=== PATIENT | female | born 1985 | race Caucasian/White ===

== ENCOUNTER → 2017-01-13 | Outpatient (CLI) | payer OTHER ==
[~2017-01-13] MED LIST: LEVO25TA5 PO; MULT-506 PO; OMEGCAP2 PO
== END | disposition home or self-care (01) ==
LOC: C.LABBC 11:37
PROVIDERS: ATTEND Family Medicine
DX: E03.9 Hypothyroidism, unspecified (principal)

== ENCOUNTER → 2017-04-23 | Outpatient (CLI) | payer OTHER ==
[2017-04-23 11:03] LABS: BASO % 0.5 %; BASO ABS # 0.04 K/uL (0-0.2); COMPLETE YES; EOS % 6.8 %; HEMATOCRIT 39.6 % (37-47); IG% 0.3 %; LYMPH % 39.9 %; MEAN CORPUSCULAR HEMOGLOBIN 31.3 pg (25-34); MEAN CORPUSCULAR HGB CONC 34.3 g/dl (32-36); MONO % 7.3 %; NEUT % 45.2 %; PLATELET COUNT 338 K/uL (130-400); RED BLOOD COUNT 4.35 M/uL (4.2-5.4); WHITE BLOOD COUNT 8.78 K/uL (4.8-10.8)
[2017-04-23 11:17] LABS: ALT/SGPT 61 U/L (12-78); BLOOD UREA NITROGEN 9 mg/dl (7-18); BUN/CREATININE RATIO 13.4 (10-20); CALCIUM 8.7 mg/dl (8.5-10.1); CARBON DIOXIDE 25 mmol/L (21-32); CHLORIDE 107 mmol/L (98-107); CHOLESTEROL 235 mg/dl (0-200); GLUCOSE 147 mg/dl (70-99); POTASSIUM 3.8 mmol/L (3.5-5.1); SODIUM 140 mmol/L (136-145); TRIGLYCERIDES 368 mg/dl (0-150); VERY LOW DENSITY LIPOPROT CALC 74 mg/dl
[2017-04-23 11:20] LABS: ALB/GLOB RATIO 0.8 (0.9-2); ALKALINE PHOSPHATASE 91 U/L (45-117); AST/SGOT 40 U/L (15-37); CHOLESTEROL/HDL RATIO 12.4; HDL CHOLESTEROL 19 mg/dl; LDL CHOLESTEROL CALCULATED 142 mg/dl
[2017-04-23 11:26] LABS: ESTIMATED AVERAGE GLUCOSE 151 mg/dl; HA1C FLAG Normal (Normal)
== END | disposition home or self-care (01) ==
LOC: C.LABBC 09:06
PROVIDERS: ATTEND Physician Assistant
DX: E78.5 Hyperlipidemia, unspecified (principal); D72.829 Elevated white blood cell count, unspecified; R73.9 Hyperglycemia, unspecified

== ENCOUNTER → 2017-06-01 | Outpatient (CLI) | payer OTHER ==
[2017-06-08 11:27] LABS: HPV 16 RNA NOT DETECTED (NOT DETECTED); HPV 18 45 RNA NOT DETECTED (NOT DETECTED)
== END | disposition home or self-care (01) ==
LOC: C.PAPS 12:18
PROVIDERS: ATTEND Physician Assistant
DX: Z01.419 Encounter for gynecological examination (general) (routine) without abnormal findings (principal)

== ENCOUNTER → 2017-06-01 | Outpatient (CLI) | payer OTHER ==
[2017-06-01 12:42] LABS: PREG INTERNAL NEGATIVE QC NEG CLEAR BACKGROUND; PREG INTERNAL POSITIVE QC POS CONTROL LINE
[2017-06-01 12:57] LABS: PROLACTIN 5.3 ng/mL
== END | disposition home or self-care (01) ==
LOC: C.LAB1850 09:59
PROVIDERS: ATTEND Physician Assistant
DX: N91.1 Secondary amenorrhea (principal)

== ENCOUNTER → 2017-07-01 | Outpatient (CLI) | payer OTHER ==
--- NOTE | 2017-07-01 13:15 | DIAGNOSTIC IMAGING REPORT ---
ULTRASOUND BILATERAL LOWER EXTREMITY VENOUS CLINICAL HISTORY: Leg pain/cramping. COMPARISON STUDY: Left lower extremity venous ultrasound dated 03/22/2016. TECHNIQUE: Real-time, grayscale, and color Doppler sonography of the deep veins of the right and left lower extremity was performed from the inguinal crease to the calf. Compression and augmentation were utilized. FINDINGS: There is no sonographic evidence of deep venous thrombosis identified in the right or left lower extremity. The common femoral, superficial femoral, and popliteal veins are patent and normally compressible bilaterally. The greater saphenous vein and the profunda femoris vein at the junction with the common femoral vein are clear in both legs. The visualized calf veins are patent bilaterally. IMPRESSION: There is no sonographic evidence of deep venous thrombosis identified in the right or left lower extremity. Electronically signed by: Jose Samaniego M.D. 07/01/2017 1:14 PM Dictated Date/Time: 07/01/2017 1:12 PM
== END | disposition home or self-care (01) ==
LOC: C.ULTR 12:38
PROVIDERS: ATTEND Physician Assistant
DX: R25.2 Cramp and spasm (principal)

== ENCOUNTER → 2017-10-27 | Outpatient (CLI) | payer OTHER ==
[2017-10-27 14:22] LABS: BASO % 0.5 %; BASO ABS # 0.05 K/uL (0-0.2); EOS % 6.8 %; HEMATOCRIT 40.6 % (37-47); HEMOGLOBIN 13.6 g/dL (12.0-16.0); IG# 0.06 K/uL (0.00-0.02); LYMPH % 39.1 %; MEAN CELL VOLUME 91.4 fL (80-100); MEAN CORPUSCULAR HEMOGLOBIN 30.6 pg (25-34); MEAN CORPUSCULAR HGB CONC 33.5 g/dl (32-36); MEAN PLATELET VOLUME 9.5 fL (7.4-10.4); MONO % 6.4 %; MONO ABS # 0.66 K/uL (0.11-0.59); NEUT % 46.6 %; NEUT ABS # 4.77 K/uL (1.4-6.5); PLATELET COUNT 422 K/uL (130-400); RED CELL DISTRIBUTION WIDTH CV 13.8 % (11.5-14.5); RED CELL DISTRIBUTION WIDTH SD 46.5 fL (36.4-46.3); WHITE BLOOD COUNT 10.24 K/uL (4.8-10.8)
[2017-10-27 14:27] LABS: HEMOGLOBIN A1C 6.6 % (4.5-5.6)
[2017-10-27 14:51] LABS: ALBUMIN 3.3 gm/dl (3.4-5.0); ALT/SGPT 71 U/L (12-78); BLOOD UREA NITROGEN 15 mg/dl (7-18); CALCIUM 8.7 mg/dl (8.5-10.1); CARBON DIOXIDE 25 mmol/L (21-32); CHOLESTEROL 249 mg/dl (0-200); GLUCOSE 151 mg/dl (70-99); SODIUM 136 mmol/L (136-145)
[2017-10-27 15:02] LABS: ALKALINE PHOSPHATASE 64 U/L (45-117); AST/SGOT 53 U/L (15-37); TOTAL PROTEIN 7.8 gm/dl (6.4-8.2)
== END | disposition home or self-care (01) ==
LOC: C.LABBC 11:04
PROVIDERS: ATTEND Neuromusculoskeletal Medicine & OMM
DX: E03.9 Hypothyroidism, unspecified (principal); I10 Essential (primary) hypertension; E66.01 Morbid (severe) obesity due to excess calories; E66.9 Obesity, unspecified; E11.9 Type 2 diabetes mellitus without complications

== ENCOUNTER → 2017-10-28 | Outpatient (CLI) | payer OTHER | END | disposition home or self-care (01) | LOC: C.LABBC 10:20 | PROVIDERS: ATTEND Neuromusculoskeletal Medicine & OMM | DX: N91.2 Amenorrhea, unspecified (principal); N92.6 Irregular menstruation, unspecified ==

== ENCOUNTER 2024-01-04 14:09 | Inpatient (IN) ==
[2024-01-04] MEDS: ONDANSETRON INJ 2 MG/ML 2 ML VIAL IV STA (14:33)
[2024-01-04 14:53] LABS: Basophils # (auto) 0.05 K/uL (0.00-0.20); Basophils % (auto) 0.3 %; Eosinophils # (auto) 1.36 K/uL (0.00-0.50); Eosinophils % (auto) 8.9 %; Hematocrit (blood only) 39.6 % (37.0-47.0); Hemoglobin 13.3 g/dl (12.0-16.0); Immature Granulocytes # (auto) 0.05 K/uL (0.01-0.20); Immature Granulocytes % (auto) 0.3 %; Lymphocytes # (auto) 4.84 K/uL (1.20-3.40); Lymphocytes % (auto) 31.7 %; Mean Corpuscular Hemoglobin 29.5 pg (25.0-34.0); Mean Corpuscular Hgb Conc 33.6 g/dL (32.0-36.0); Mean Corpuscular Volume 87.8 fL (80.0-100.0); Mean Platelet Volume 8.7 fL (9.4-12.4); Monocytes # (auto) 0.82 K/uL (0.11-0.59); Monocytes % (auto) 5.4 %; Neutrophils # (auto) 8.13 K/uL (1.40-6.50); Neutrophils % (auto) 53.4 %; Platelet Count 458 K/uL (130-400); RDW Coefficient of Variation 12.6 % (11.5-14.5); Red Blood Count 4.51 M/uL (4.20-5.40); White Blood Count 15.25 K/ul (4.8-10.8)
[2024-01-04 15:10] LABS: Pregnancy Test, Serum Negative (Negative)
[2024-01-04 15:28] LABS: Albumin Globulin Ratio 1.3 (0.9-2); Albumin Level 4.3 gm/dl (3.4-5.0); BUN Creatinine Ratio 17.7 (10-20); Bilirubin,Total 0.9 mg/dl (0.2-1.0); Creatinine Clr Calc Pharmacy 125.8 ml/min; Est GFR (African American) 109.3 ml/min; Est GFR (Non-African American) 94.3 ml/min; Globulin 3.4 gm/dl (2.5-4.0); Potassium 3.8 mmol/L (3.5-5.1); Total Protein 7.7 gm/dl (6.0-8.3)
[2024-01-04] MEDS: OPTIRAY 320 100ml IV ONE (16:31)
--- NOTE | 2024-01-04 16:57 | CT Scan Report ---
ABDOMEN AND PELVIS CT WITH IV CONTRAST CT DOSE: 1564.79 mGy.cm HISTORY: Acute generalized abdominal pain abd pain TECHNIQUE: Multiaxial CT images of the abdomen and pelvis were performed following the IV administrat ion of 92 cc of Optiray, A dose lowering technique was utilized adhering to the principles of ALARA. COMPARISON STUDY: None. FINDINGS: Partially imaged coronary arterial calcifications. No acute lower thoracic abnormality. No free air. Unremarkable spleen, pancreas and adrenal glands. There is mild nonspecific gallbladder wal l thickening. Trace pericholecystic edema. The liver is within normal limits. Patency of the hepatic and portal veins. Unremarkable kidneys. No hydronephrosis. Decompressed urinary bladder with wall thickening. Unremarka ble uterus and adnexa. Mild atherosclerosis of the aorta without aneurysm. Nonspecific borderline enl arged aortocaval lymph nodes measure up to 11 mm in short axis. No bowel junction. The majority of th e large bowel is decompressed. Scattered large and small bowel air-fluid levels. The visualized appen angela appears noninflamed. No acute fracture identified. Osseous structures right is of the bilateral h ips with subcortical cystic changes and subchondral sclerosis. Accessory ossicle of the left acetabul um. Moderate to severe L4-L5 intervertebral disc space narrowing. IMPRESSION: 1. Mild nonspecific gallbladder wall thickening with trace pericholecystic edema. Correlation with ri ght upper quadrant ultrasound recommended. 2. No bowel obstruction or pneumoperitoneum. 3. Normal appendix. 4. Coronary arterial calcifications. ACT 112: Negative or not required by law. The above report was generated using voice recognition software. It may contain grammatical, syntax o r spelling errors. Electronically signed by: Chris Oconnell M.D. 01/04/2024 4:56 PM
--- NOTE | 2024-01-04 17:39 | Emergency Department Note ---
ED Provider Note History of Present Illness Chief Complaint: Diarrhea Stated Complaint: NAUSEA, UPSET STOMACH, SULFUR TASTE IN MOUTH, DIAR Time Seen by Provider: 01/04/24 16:35 Source: patient Mode of arrival: ambulatory Limitations: no limitations This patient is a 38-year-old female who presents to the emergency department for evaluation of nausea, diarrhea and abdominal pain. She states that her symptoms started 2 days ago. At that time she was having some nausea. She is on Mounjaro and took her most recent dose the day before, so she initially thought it was side effects due to this. Yesterday she had some worsening nausea as well as some diarrhea. Today symptoms have continued worsening and she has had no appetite. She tried eating some chicken strips and then felt very sick again, with increased nausea and upper abdominal pain. Patient does report a history of gallstones when she was in high school. Otherwise denies a history of similar symptoms. She denies any blood in her stools. She has not vomited. She denies any fevers. Home Medications Medication Instructions Recorded Confirmed Type blood sugar diagnostic (ReliOn 11/19/22 01/04/24 History Prime Test Strips) cholecalciferol (vitamin D3) 50 50 mcg PO DAILY 11/19/22 01/04/24 History mcg (2,000 unit) capsule pen needle, diabetic 32 gauge x #100 ea 12/16/22 01/04/24 Rx 5/32" (BD Ultra-Fine Chichi Pen Needle) omega-3 fatty acids 1,000 mg 2,000 mg PO BID 01/07/23 01/04/24 History capsule (Fish Oil Concentrate) levothyroxine 125 mcg tablet 125 mcg PO DAILY #90 tabs 02/08/23 01/04/24 Rx labetalol 100 mg tablet 100 mg PO DAILY #90 tabs 05/11/23 01/04/24 Rx niacin 1,000 mg tablet,extended 1,000 mg PO .qhs #90 tabs 05/31/23 01/04/24 Rx release 24 hr blood-glucose sensor (FreeStyle #2 ea 10/25/23 01/04/24 Rx Adwoa 3 Sensor device) insulin glargine 100 unit/mL (3 55 unit subcut QAM 11/17/23 01/04/24 History mL) subcutaneous pen (Lantus Solostar U-100 Insulin) rosuvastatin 20 mg tablet 20 mg PO DAILY #90 tabs 11/17/23 01/04/24 Rx tirzepatide 12.5 mg/0.5 mL 12.5 mg (0.5 mL) subcut Q7D #2 mL 11/17/23 01/04/24 Rx subcutaneous pen injector metformin 1,000 mg tablet 1,000 mg PO BID #60 tabs 12/22/23 01/04/24 Rx Allergies Allergy/AdvReac Type Severity Reaction Status Date / Time No Known Allergies Allergy Unverified 01/04/24 21:12 Past Med/Surg History Medical History Cervical high risk HPV (human papillomavirus) test positive Menstrual periods irregular Secondary amenorrhea Vitamin D deficiency Obesity, morbid Hx of migraines Surgical History No pertinent past surgical history Family History Father Colorectal cancer Myocardial infarction Coronary heart disease Diabetes Dyslipidemia Mother Ovarian cancer Diabetes Dyslipidemia Hypothyroidism Alzheimer disease Brother Hypertension Sister Hypertension Grandmother (Maternal) Hyperthyroidism Denies family history of Prostate cancer Breast cancer Social History Smoking Status: Never smoker Second Hand Exposure: No; Do You Dip or Chew Tobacco: No; Hx Alcohol Use: No Hx Substance Use: No Preferred Language: Albanian Communication Ability: Effective Visual Impairment: No Limitations Hearing Ability: Normal Ovens Supervisor Required: No Beliefs That Will Affect Care: None marital status: Current Living Situation: Spouse current occupational status: employed Feels Safe at Home: Yes Safety Concerns: Feels Safe At This Time Childhood Exposure to Second-Hand Smoke: Yes Diet: regular Dental Care, Regularly: Yes Physical Activity Frequency: 3-4 Times per Week Seatbelt Use: always Sunscreen Use: Yes Assistive Devices: Glasses Physical Exam Vital Signs Vital Signs - 24 hr 01/04/24 14:15 01/04/24 16:57 01/04/24 16:58 Temperature 36.7 C Temperature Source Temporal Artery Scan Pulse Rate 121 H 94 H 92 H Pulse Rate from SpO2 Sensor 94 H Respiratory Rate 16 23 Respiratory Effort / Characteristics Non-Labored Spontaneous Respiratory Depth Normal Respiratory Pattern Regular Blood Pressure 178/132 H 122/76 Blood Pressure Mean 147 91 Blood Pressure Position Sitting Pulse Oximetry 97 97 Oxygen Delivery Method Room Air Sepsis Recent Fever Within 48 Hours No Sepsis New/Unexplained Change in Mental Status N/A Sepsis Action Taken by Nursing No Action Required 01/04/24 18:00 01/04/24 19:00 Temperature Temperature Source Pulse Rate 87 86 Pulse Rate from SpO2 Sensor 87 86 Respiratory Rate 19 18 Respiratory Effort / Characteristics Respiratory Depth Respiratory Pattern Blood Pressure 120/78 133/75 Blood Pressure Mean 92 94 Blood Pressure Position Pulse Oximetry 97 99 Oxygen Delivery Method Room Air Room Air Sepsis Recent Fever Within 48 Hours Sepsis New/Unexplained Change in Mental Status Sepsis Action Taken by Nursing VITALS: Vitals are noted on the nurse's note and reviewed by myself. GENERAL: This is a 38-year-old female, in no acute distress, well-developed well-nourished. SKIN: The skin was without rashes. NECK: Supple without nuchal rigidity. HEART: Regular rate and rhythm without murmurs gallops or rubs. LUNGS: Clear to auscultation bilaterally without wheezes, rales or rhonchi. ABDOMEN: Positive bowel sounds x 4. Soft, moderate epigastric tenderness to palpation. No guarding or rebound tenderness. NEURO: Patient was alert and oriented to person place and time. Course Administered Medications Acetaminophen (Acetaminophen 325 Mg Tab) 650 mg PO Q4H PRN PRN Reason: pain/fever Stop: 02/03/24 23:25 Last Admin: 01/04/24 23:50 Dose: 650 mg Documented By: JANELLE Potassium Chloride/Sodium Chloride (Normal Saline W/20 Meq Kcl) 20 meq in 1,000 mls @ 100 mls/hr IV .Q10H [facility]; Protocol Stop: 01/05/24 17:59 Last Admin: 01/04/24 23:51 Dose: 100 mls/hr Documented By: JANELLE Discontinued Medications Sodium Chloride (Nss) 1,000 mls @ 999 mls/hr IV .Q1H1M ONE Stop: 01/04/24 18:41 Last Infusion: 01/04/24 21:17 Dose: Infused Documented By: Admin: 01/04/24 18:03 Dose: 999 mls/hr Documented By: JOVANNA Ceftriaxone Sodium (Rocephin) 2,000 mg in 50 mls @ 100 mls/hr IV NOW STA Stop: 01/04/24 22:24 Last Infusion: 01/04/24 23:10 Dose: Infused Documented By: Admin: 01/04/24 22:40 Dose: 100 mls/hr Documented By: NIYA Pantoprazole Sodium 40 mg/ (Syringe) 10 mls @ 5 mls/min IV NOW ONE Stop: 01/04/24 22:16 Last Admin: 01/04/24 22:38 Dose: 5 mls/min Documented By: NIYA Ioversol (Optiray 320 100ml) 92 ml IV ONCE ONE Stop: 01/04/24 16:32 Last Admin: 01/04/24 16:31 Dose: 92 ml Documented By: ANA MARIA Morphine Sulfate (Morphine Sulfate 10 Mg/Ml Carp/Vial) 6 mg IV NOW STA Stop: 01/04/24 17:42 Last Admin: 01/04/24 18:04 Dose: 6 mg Documented By: JOVANNA Ondansetron HCl (Ondansetron Inj 2 Mg/Ml 2 Ml Vial) 4 mg IV NOW STA Stop: 01/04/24 14:24 Last Admin: 01/04/24 14:33 Dose: 4 mg Documented By: ONEIL Medical Decision Making Differential Diagnosis Appendicitis, ovarian cyst, ovarian torsion, ectopic , TOA, PID, infections, diverticulitis, UTI, obstruction, mesenteric ischemia, aortic pathology, inflammatory bowel disease, renal colic, PUD, pancreatitis, biliary pathology, hernia, volvulus, constipation, as well as other pathologies. Home Medications was personally reviewed by me Laboratory Data Attestation: I reviewed the patient's lab results. 01/04/24 14:32 01/04/24 14:32 Lab Results 01/04/24 Range/Units 14:32 WBC 15.25 H (4.8-10.8) K/ul RBC 4.51 (4.20-5.40) M/uL Hgb 13.3 (12.0-16.0) g/dl Hct 39.6 (37.0-47.0) % MCV 87.8 (80.0-100.0) fL MCH 29.5 (25.0-34.0) pg MCHC 33.6 (32.0-36.0) g/dL RDW Std Deviation 40.0 (36.4-46.3) fL RDW Coeff of Papa 12.6 (11.5-14.5) % Plt Count 458 H (130-400) K/uL MPV 8.7 L (9.4-12.4) fL Immature Gran % (Auto) 0.3 % Neut % (Auto) 53.4 % Lymph % (Auto) 31.7 % Dukes % (Auto) 5.4 % Eos % (Auto) 8.9 % Baso % (Auto) 0.3 % Neut # (Auto) 8.13 H (1.40-6.50) K/uL Lymph # (Auto) 4.84 H (1.20-3.40) K/uL Dukes # (Auto) 0.82 H (0.11-0.59) K/uL Eos # (Auto) 1.36 H (0.00-0.50) K/uL Baso # (Auto) 0.05 (0.00-0.20) K/uL Immature Gran # (Auto) 0.05 (0.01-0.20) K/uL Sodium 139 (136-145) mmol/L Potassium 3.8 (3.5-5.1) mmol/L Chloride 107 (98-107) mmol/L Carbon Dioxide 24 (21-32) mmol/L Anion Gap 8 (3-11) BUN 14 (6-23) mg/dl Creatinine 0.79 (0.6-1.2) mg/dl Est Cr Clr Drug Dosing 125.8 ml/min Est GFR ( Amer) 109.3 ml/min Est GFR (Non-Af Amer) 94.3 ml/min BUN/Creatinine Ratio 17.7 (10-20) Glucose 207 H (70-99(Fasting)) mg/dl Calcium 9.0 (8.6-10.3) mg/dl Total Bilirubin 0.9 (0.2-1.0) mg/dl AST 17 (13-39) U/L ALT 19 (7-52) U/L Alkaline Phosphatase 66 (34-104) U/L Total Protein 7.7 (6.0-8.3) gm/dl Albumin 4.3 (3.4-5.0) gm/dl Globulin 3.4 (2.5-4.0) gm/dl Albumin/Globulin Ratio 1.3 (0.9-2) Lipase 296 H (11-82) U/L HCG, Qual Negative (Negative) Imaging Data Attestation: I personally reviewed and interpreted this imaging study as follows: Radiologist's Impression: Abdomen/Pelvis CT 01/04/24 16:[address] WITH IV CONTRAST CT DOSE: 1564.79 mGy.cm HISTORY: Acute generalized abdominal pain abd pain TECHNIQUE: Multiaxial CT images of the abdomen and pelvis were performed following the IV administration of 92 cc of Optiray, A dose lowering technique was utilized adhering to the principles of ALARA. COMPARISON STUDY: None. FINDINGS: Partially imaged coronary arterial calcifications. No acute lower thoracic abnormality. No free air. Unremarkable spleen, pancreas and adrenal glands. There is mild nonspecific gallbladder wall thickening. Trace pericholecystic edema. The liver is within normal limits. Patency of the hepatic and portal veins. Unremarkable kidneys. No hydronephrosis. Decompressed urinary bladder with wall thickening. Unremarkable uterus and adnexa. Mild atherosclerosis of the aorta without aneurysm. Nonspecific borderline enlarged aortocaval lymph nodes measure up to 11 mm in short axis. No bowel junction. The majority of the large bowel is decompressed. Scattered large and small bowel air-fluid levels. The visualized appendix appears noninflamed. No acute fracture identified. Osseous structures right is of the bilateral hips with subcortical cystic changes and subchondral sclerosis. Accessory ossicle of the left acetabulum. Moderate to severe L4-L5 intervertebral disc space narrowing. IMPRESSION: 1. Mild nonspecific gallbladder wall thickening with trace pericholecystic edema. Correlation with right upper quadrant ultrasound recommended. 2. No bowel obstruction or pneumoperitoneum. 3. Normal appendix. 4. Coronary arterial calcifications. ACT 112: Negative or not required by law. The above report was generated using voice recognition software. It may contain grammatical, syntax or spelling errors. Electronically signed by: Chris Oconnell M.D. 01/04/2024 4:56 PM Gallbladder Ultrasound 01/04/24 17:25 Exam(s): US GALLBLADDER EXAM: US Abdomen Limited, Gallbladder CLINICAL HISTORY: Reason for exam: upper abd pain, elevated lipase, abnormal gb on ct. TECHNIQUE: Real-time ultrasound of the right upper quadrant with image documentation. COMPARISON: CT abdomen and pelvis of the same date FINDINGS: Liver: Liver measures 18 cm, enlarged. Increased echogenicity. No focal lesion. Patent, normally directed portal vein. Gallbladder: Cholelithiasis. Borderline gallbladder wall thickness measuring 3 mm. Alvarado sign indeterminate due to analgesia. Common bile duct: No biliary dilatation. Common bile duct 3 mm. Pancreas: Pancreas appears unremarkable as visualized. Right kidney: Right kidney measures 12.3 cm. No hydronephrosis. IMPRESSION: 1. Cholelithiasis and borderline gallbladder wall thickening. Imaging appearance is not especially suggestive of cholecystitis, but clinical correlation required. 2. Hepatomegaly and steatosis. Electronically signed by: Murtaza Serrano M.D. 01/04/24 20:07 PM MDM Narrative This patient is a 38-year-old female who presents to the Emergency Department for evaluation of nausea, diarrhea and abdominal pain. Labs revealed a leukocytosis of 15,000. Her lipase is elevated at 296, LFTs are within normal limits. CT of the abdomen/pelvis was performed and does show a normal pancreas, however there is some gallbladder wall thickening and pericholecystic edema. Right upper quadrant ultrasound was recommended. This was performed and does show cholelithiasis and borderline wall thickening. Common bile duct is 3 mm, no biliary dilatation. Case was discussed with Dr. Sumner from general surgery. After discussion of findings, he recommended admission to medicine for further workup and care. He states that general surgery will consult. Patient informed of all findings. She did receive IV fluids, Zofran and morphine in the ER for symptoms. She verbalized understanding. Case was then discussed with the [facility] who agreed to evaluate the patient for further care. Discharge Plan Visit Data Chief Complaint: Diarrhea Stated Complaint: NAUSEA, UPSET STOMACH, SULFUR TASTE IN MOUTH, DIAR ED Provider: Wayne Cedeño ED Midlevel Provider: Tatianna Ashby Patient Disposition: Admitted As Inpatient Discharge Instructions Interventions: ED Discharge Assessment Last Done: 01/04/24 22:54
[2024-01-04] MEDS: SODIUM CHLORIDE 0.9% 1,000 ML IV ONE (18:03)
[2024-01-04] MEDS: MoRPHine SULFATE 10 MG/ML CARP/VIAL IV STA (18:04)
--- NOTE | 2024-01-04 20:08 | Ultrasound Report ---
Exam(s): US GALLBLADDER EXAM: US Abdomen Limited, Gallbladder CLINICAL HISTORY: Reason for exam: upper abd pain, elevated lipase, abnormal gb on ct. TECHNIQUE: Real-time ultrasound of the right upper quadrant with image documentation. COMPARISON: CT abdomen and pelvis of the same date FINDINGS: Liver: Liver measures 18 cm, enlarged. Increased echogenicity. No focal lesion. Patent, normally directed portal vein. Gallbladder: Cholelithiasis. Borderline gallbladder wall thickness measuring 3 mm. Alvarado sign indeterminate due to analgesia. Common bile duct: No biliary dilatation. Common bile duct 3 mm. Pancreas: Pancreas appears unremarkable as visualized. Right kidney: Right kidney measures 12.3 cm. No hydronephrosis. IMPRESSION: 1. Cholelithiasis and borderline gallbladder wall thickening. Imaging appearance is not especially suggestive of cholecystitis, but clinical correlation required. 2. Hepatomegaly and steatosis. Electronically signed by: Murtaza Serrano M.D. 01/04/24 20:07 PM
--- NOTE | 2024-01-04 21:58 | History & Physical Report ---
Date of Service January 04, 2024 Assessment & Plan (1) Abnormal findings on diagnostic imaging of gallbladder: (2) Pancreatitis: (3) Dyslipidemia: (4) Hypothyroidism: (5) Hypertension: (6) Uncontrolled type 2 diabetes mellitus with hyperglycemia: (7) Obesity, morbid: Plan Abnormal gallbladder imaging with pancreatitis- Patient has had progressive symptoms over the past 2 days initially given his nausea with vomiting, and then progressed to abdominal epigastric discomfort today. She does note an interval at the end of July or early August when she had similar symptoms, and thought was just a food reaction. CT scan of abdomen pelvis notes gallbladder wall thickening and mild pericholecystic edema and no noted pancreatitis Gallbladder ultrasound shows cholelithiasis and gallbladder wall thickness, but no definite acute cholecystitis and no note of pancreatitis NPO Ceftriaxone 2 g IV daily Pantoprazole 40 mg IV daily Normal saline + KCl 20 mill equivalents at 100 mL/h x 2 L Order HIDA scan Order serial CBC with differential, chemistry profile and lipase levels Diabetes mellitus- Glucose 207 on admission Reduce glargine from 55 to 30 units subcu daily Placed on Accu-Cheks with NovoLog SSI Hold metformin and tirzepatide Of note, tirzepatide/Mounjaro is associated with gallbladder disease, diarrhea, nausea and vomiting, and acute pancreatitis Hypertension- Reportedly is on labetalol 100 mg daily, which will be held due to being relatively low blood pressure If blood pressure is elevated in the morning, may resume partial dosing at that time History of Present Illness Chief Complaint: The patient presents to the emergency department with complaint of intermittent nausea that began about 2 days ago, and then today developed abdominal discomfort in the epigastric area, and diarrhea Primary Care Provider: Freddie Cortez DO The patient is a 38-year-old female past medical history including dyslipidemia, hypothyroidism, hypertension, diabetes mellitus type 2 and morbid obesity with BMI 42. She presents to the emergency department with symptoms as noted above. CT scan of abdomen pelvis showed gallbladder wall thickening, with mild pericholecystic edema, with suggestion for ordered gallbladder ultrasound for confirmation. Gallbladder ultrasound revealed cholelithiasis with gallbladder wall thickening, but unsure of evidence of acute cholecystitis. LFTs are normal, and lipase is elevated 296. WBC is elevated 15.25 Allergies Allergy/AdvReac Type Severity Reaction Status Date / Time No Known Allergies Allergy Unverified 01/04/24 21:12 Home Medications Medication Instructions Recorded Confirmed Type blood sugar diagnostic (ReliOn 11/19/22 01/04/24 History Prime Test Strips) cholecalciferol (vitamin D3) 50 50 mcg PO DAILY 11/19/22 01/04/24 History mcg (2,000 unit) capsule pen needle, diabetic 32 gauge x #100 ea 12/16/22 01/04/24 Rx 5/32" (BD Ultra-Fine Chichi Pen Needle) omega-3 fatty acids 1,000 mg 2,000 mg PO BID 01/07/23 01/04/24 History capsule (Fish Oil Concentrate) levothyroxine 125 mcg tablet 125 mcg PO DAILY #90 tabs 02/08/23 01/04/24 Rx labetalol 100 mg tablet 100 mg PO DAILY #90 tabs 05/11/23 01/04/24 Rx niacin 1,000 mg tablet,extended 1,000 mg PO .qhs #90 tabs 05/31/23 01/04/24 Rx release 24 hr blood-glucose sensor (FreeStyle #2 ea 10/25/23 01/04/24 Rx Adwoa 3 Sensor device) insulin glargine 100 unit/mL (3 55 unit subcut QAM 11/17/23 01/04/24 History mL) subcutaneous pen (Lantus Solostar U-100 Insulin) rosuvastatin 20 mg tablet 20 mg PO DAILY #90 tabs 11/17/23 01/04/24 Rx tirzepatide 12.5 mg/0.5 mL 12.5 mg (0.5 mL) subcut Q7D #2 mL 11/17/23 01/04/24 Rx subcutaneous pen injector metformin 1,000 mg tablet 1,000 mg PO BID #60 tabs 12/22/23 01/04/24 Rx Past Med/Surg History Medical History Cervical high risk HPV (human papillomavirus) test positive Menstrual periods irregular Secondary amenorrhea Vitamin D deficiency Obesity, morbid Hx of migraines Surgical History No pertinent past surgical history Family History Father Colorectal cancer Myocardial infarction Coronary heart disease Diabetes Dyslipidemia Mother Ovarian cancer Diabetes Dyslipidemia Hypothyroidism Alzheimer disease Brother Hypertension Sister Hypertension Grandmother (Maternal) Hyperthyroidism Denies family history of Prostate cancer Breast cancer Social History Smoking Status: Never smoker Second Hand Exposure: No; Do You Dip or Chew Tobacco: No; Hx Alcohol Use: No Hx Substance Use: No Preferred Language: Hebrew Communication Ability: Effective Visual Impairment: No Limitations Hearing Ability: Normal Ceramics Instructor Required: No Beliefs That Will Affect Care: None marital status: Current Living Situation: Spouse current occupational status: employed Feels Safe at Home: Yes Safety Concerns: Feels Safe At This Time Childhood Exposure to Second-Hand Smoke: Yes Diet: regular Dental Care, Regularly: Yes Physical Activity Frequency: 3-4 Times per Week Seatbelt Use: always Sunscreen Use: Yes Assistive Devices: Glasses Review of Systems Review of Systems: The patient denies chest pain, palpitations, shortness of breath, dyspnea on exertion, cough, lower extremity swelling, sore throat, fevers, chills, sweats, blood in urine or stool, dysuria, urinary frequency or urgency, lightheadedness, dizziness, headache, memory loss, loss of consciousness, rash, abnormal bruising or bleeding, imbalance, focal or generalized weakness, numbness or tingling in arms or legs, generalized arthralgias or myalgias, neck pain, or night sweats. The review of systems is otherwise negative other than for that already noted above, and at least 10 systems have been reviewed. Physical Exam Physical Exam: The patient is awake, alert and oriented 3, well developed and well nourished, normocephalic and atraumatic, lying in bed and in no acute distress. HEENT--PERRL, EOMI, mucous membranes and oropharynx dry. Neck--supple. No JVD. No bruits. Thyroid normal, trachea midline, no adenopathy. Heart--normal S1 and S2. No murmurs, rubs or gallops. Lungs--clear bilaterally, no respiratory distress, no accessory muscle use. Abdomen--normal bowel sounds and soft. Mild epigastric area tenderness Extremities--no cyanosis or clubbing. No edema. Dermatologic--normal skin turgor, normal color, no abnormal lymph nodes, no rash. Neurologic--cranial nerves II through XII grossly intact. Rheumatologic--normal range of motion. Psychiatric--normal affect. Results & Data Results & Data Vital Signs (Past 12 Hours) Vital Signs Temp Pulse Resp BP Pulse Ox O2 Del Method 01/04/24 18:00 87 19 120/78 97 Room Air 01/04/24 16:58 92 H 01/04/24 16:57 94 H 23 122/76 97 01/04/24 14:15 36.7 C 121 H 16 178/132 H 97 Room Air Laboratory Results Laboratory Results WBC 15.25 K/ul (4.8-10.8) H 01/04/24 14:32 RBC 4.51 M/uL (4.20-5.40) 01/04/24 14:32 Hgb 13.3 g/dl (12.0-16.0) 01/04/24 14:32 Hct 39.6 % (37.0-47.0) 01/04/24 14:32 MCV 87.8 fL (80.0-100.0) 01/04/24 14:32 MCH 29.5 pg (25.0-34.0) 01/04/24 14:32 MCHC 33.6 g/dL (32.0-36.0) 01/04/24 14:32 RDW Std Deviation 40.0 fL (36.4-46.3) 01/04/24 14:32 RDW Coeff of Papa 12.6 % (11.5-14.5) 01/04/24 14:32 Plt Count 458 K/uL (130-400) H 01/04/24 14:32 MPV 8.7 fL (9.4-12.4) L 01/04/24 14:32 Immature Gran % (Auto) 0.3 % 01/04/24 14:32 Neut % (Auto) 53.4 % 01/04/24 14:32 Lymph % (Auto) 31.7 % 01/04/24 14:32 Broome % (Auto) 5.4 % 01/04/24 14:32 Eos % (Auto) 8.9 % 01/04/24 14:32 Baso % (Auto) 0.3 % 01/04/24 14:32 Neut # (Auto) 8.13 K/uL (1.40-6.50) H 01/04/24 14:32 Lymph # (Auto) 4.84 K/uL (1.20-3.40) H 01/04/24 14:32 Broome # (Auto) 0.82 K/uL (0.11-0.59) H 01/04/24 14:32 Eos # (Auto) 1.36 K/uL (0.00-0.50) H 01/04/24 14:32 Baso # (Auto) 0.05 K/uL (0.00-0.20) 01/04/24 14:32 Immature Gran # (Auto) 0.05 K/uL (0.01-0.20) 01/04/24 14:32 Sodium 139 mmol/L (136-145) 01/04/24 14:32 Potassium 3.8 mmol/L (3.5-5.1) 01/04/24 14:32 Chloride 107 mmol/L (98-107) 01/04/24 14:32 Carbon Dioxide 24 mmol/L (21-32) 01/04/24 14:32 Anion Gap 8 (3-11) 01/04/24 14:32 BUN 14 mg/dl (6-23) 01/04/24 14:32 Creatinine 0.79 mg/dl (0.6-1.2) 01/04/24 14:32 Est Cr Clr Drug Dosing 125.8 ml/min 01/04/24 14:32 Est GFR ( Amer) 109.3 ml/min 01/04/24 14:32 Est GFR (Non-Af Amer) 94.3 ml/min 01/04/24 14:32 BUN/Creatinine Ratio 17.7 (10-20) 01/04/24 14:32 Glucose 207 mg/dl (70-99(Fasting)) H 01/04/24 14:32 Calcium 9.0 mg/dl (8.6-10.3) 01/04/24 14:32 Total Bilirubin 0.9 mg/dl (0.2-1.0) 01/04/24 14:32 AST 17 U/L (13-39) 01/04/24 14:32 ALT 19 U/L (7-52) 01/04/24 14:32 Alkaline Phosphatase 66 U/L (34-104) 01/04/24 14:32 Total Protein 7.7 gm/dl (6.0-8.3) 01/04/24 14:32 Albumin 4.3 gm/dl (3.4-5.0) 01/04/24 14:32 Globulin 3.4 gm/dl (2.5-4.0) 01/04/24 14:32 Albumin/Globulin Ratio 1.3 (0.9-2) 01/04/24 14:32 Lipase 296 U/L (11-82) H 01/04/24 14:32 HCG, Qual Negative (Negative) 01/04/24 14:32 Impressions Abdomen/Pelvis CT 01/04/24 16:[address] WITH IV CONTRAST CT DOSE: 1564.79 mGy.cm HISTORY: Acute generalized abdominal pain abd pain TECHNIQUE: Multiaxial CT images of the abdomen and pelvis were performed following the IV administration of 92 cc of Optiray, A dose lowering technique was utilized adhering to the principles of ALARA. COMPARISON STUDY: None. FINDINGS: Partially imaged coronary arterial calcifications. No acute lower thoracic abnormality. No free air. Unremarkable spleen, pancreas and adrenal glands. There is mild nonspecific gallbladder wall thickening. Trace pericholecystic edema. The liver is within normal limits. Patency of the hepatic and portal veins. Unremarkable kidneys. No hydronephrosis. Decompressed urinary bladder with wall thickening. Unremarkable uterus and adnexa. Mild atherosclerosis of the aorta without aneurysm. Nonspecific borderline enlarged aortocaval lymph nodes measure up to 11 mm in short axis. No bowel junction. The majority of the large bowel is decompressed. Scattered large and small bowel air-fluid levels. The visualized appendix appears noninflamed. No acute fracture identified. Osseous structures right is of the bilateral hips with subcortical cystic changes and subchondral sclerosis. Accessory ossicle of the left acetabulum. Moderate to severe L4-L5 intervertebral disc space narrowing. IMPRESSION: 1. Mild nonspecific gallbladder wall thickening with trace pericholecystic edema. Correlation with right upper quadrant ultrasound recommended. 2. No bowel obstruction or pneumoperitoneum. 3. Normal appendix. 4. Coronary arterial calcifications. ACT 112: Negative or not required by law. The above report was generated using voice recognition software. It may contain grammatical, syntax or spelling errors. Electronically signed by: Chris Oconnell M.D. 01/04/2024 4:56 PM Gallbladder Ultrasound 01/04/24 17:25 Exam(s): US GALLBLADDER EXAM: US Abdomen Limited, Gallbladder CLINICAL HISTORY: Reason for exam: upper abd pain, elevated lipase, abnormal gb on ct. TECHNIQUE: Real-time ultrasound of the right upper quadrant with image documentation. COMPARISON: CT abdomen and pelvis of the same date FINDINGS: Liver: Liver measures 18 cm, enlarged. Increased echogenicity. No focal lesion. Patent, normally directed portal vein. Gallbladder: Cholelithiasis. Borderline gallbladder wall thickness measuring 3 mm. Alvarado sign indeterminate due to analgesia. Common bile duct: No biliary dilatation. Common bile duct 3 mm. Pancreas: Pancreas appears unremarkable as visualized. Right kidney: Right kidney measures 12.3 cm. No hydronephrosis. IMPRESSION: 1. Cholelithiasis and borderline gallbladder wall thickening. Imaging appearance is not especially suggestive of cholecystitis, but clinical correlation required. 2. Hepatomegaly and steatosis. Electronically signed by: Murtaza Serrano M.D. 01/04/24 20:07 PM Code Status & VTE Plan Code Status Full code VTE Prophylaxis Plan VTE Prophylaxis will be ordered: Yes PG Care Time/CCT Total # of Minutes Spent Total Time Spent with Patient: Total time spent is greater than 50% in coordination of care (as documented) at patient's floor/unit and/or counseling patient: Coding Level of Care Code 16285 INT INP/OBS CARE 3/75MIN Diagnoses Abnormal findings on diagnostic imaging of gallbladder R93.2 Pancreatitis K85.90 Dyslipidemia E78.5 Acquired hypothyroidism E03.9 Hypothyroidism type: acquired Primary hypertension I10 Hypertension type: primary hypertension Uncontrolled type 2 diabetes mellitus with hyperglycemia E11.65 Obesity, morbid E66.01 (4) Hypothyroidism Hypothyroidism type: acquired Qualified Code(s): E03.9 - Hypothyroidism, unspecified (5) Hypertension Hypertension type: primary hypertension Qualified Code(s): I10 - Essential (primary) hypertension
[2024-01-04] MEDS: PANTOprazole 40 MG in SYRINGE 0 ML IV ONE (22:38)
[2024-01-04] MEDS: cefTRIAXone SODIUM 2,000 MG/50 ML BAG IV STA (22:40)
[2024-01-04] MEDS ORDERED: ONDANSETRON INJ 2 MG/ML 2 ML VIAL IV PRN (23:26)
[2024-01-04] MEDS: ACETAMINOPHEN 325 MG TAB PO PRN (23:50)
[2024-01-04] MEDS: NSS + 20MEQ KCL 20 MEQ/1,000 ML BAG IV SCH (23:51)
[2024-01-05] MEDS ORDERED: GLUCOSE 40% GEL 15 GM TUBE PO PRN (04:43)
[2024-01-05] MEDS ORDERED: GLUCAGON FOR INJ 1 MG VIAL SQ PRN (04:43)
[2024-01-05] MEDS ORDERED: CARBOHYDRATES FOR HYPOGLYCEMIA PO PRN (04:43)
[2024-01-05] MEDS ORDERED: DEXTROSE 50% 50 ML SYRINGE IV PRN (04:43)
[2024-01-05] MEDS ORDERED: GLUCOSE 10 TAB/TUBE PO PRN (04:43)
[2024-01-05] MEDS: FEXOFENADINE 60 MG TAB PO ONE (05:49)
[2024-01-05] MEDS: LEVOTHYROXINE SODIUM 125 MCG TABLET PO SCH (06:02)
[2024-01-05] MEDS: INSULIN ASPART PER UNIT CHARGE SC SCH ×2 (06:02→17:29)
[2024-01-05 07:34] LABS: Basophils # (auto) 0.02 K/uL (0.00-0.20); Basophils % (auto) 0.2 %; Eosinophils # (auto) 1.31 K/uL (0.00-0.50); Eosinophils % (auto) 11.1 %; Hematocrit (blood only) 34.5 % (37.0-47.0); Hemoglobin 11.6 g/dl (12.0-16.0); Immature Granulocytes # (auto) 0.04 K/uL (0.01-0.20); Immature Granulocytes % (auto) 0.3 %; Lymphocytes # (auto) 3.18 K/uL (1.20-3.40); Lymphocytes % (auto) 26.8 %; Mean Corpuscular Hemoglobin 29.7 pg (25.0-34.0); Mean Corpuscular Hgb Conc 33.6 g/dL (32.0-36.0); Mean Corpuscular Volume 88.5 fL (80.0-100.0); Mean Platelet Volume 8.9 fL (9.4-12.4); Monocytes # (auto) 0.82 K/uL (0.11-0.59); Monocytes % (auto) 6.9 %; Neutrophils # (auto) 6.48 K/uL (1.40-6.50); Neutrophils % (auto) 54.7 %; Platelet Count 348 K/uL (130-400); RDW Coefficient of Variation 12.8 % (11.5-14.5); RDW Standard Deviation 41.1 fL (36.4-46.3); White Blood Count 11.85 K/ul (4.8-10.8)
[2024-01-05 08:24] LABS: Albumin Globulin Ratio 1.3 (0.9-2); Albumin Level 3.4 gm/dl (3.4-5.0); BUN Creatinine Ratio 21.1 (10-20); Bilirubin,Total 0.7 mg/dl (0.2-1.0); Calcium 7.9 mg/dl (8.6-10.3); Creatinine Clr Calc Pharmacy 175.2 ml/min; Est GFR (African American) 135.3 ml/min; Est GFR (Non-African American) 116.8 ml/min; Globulin 2.6 gm/dl (2.5-4.0); Magnesium 1.3 mg/dl (1.7-2.4); Potassium 3.4 mmol/L (3.5-5.1)
--- NOTE | 2024-01-05 09:04 | Surgery Consultation ---
Date of Consultation January 05, 2024 Assessment & Plan (1) Acute calculous cholecystitis: IV abx IVF to OR for lap milla (2) Elevated amylase: attempt IOC if unable recheck labs in AM History of Present Illness Attending Physician: Brendan Meza MD History of Present Illness This is a 38YO with RUQ abdominal pain and nausea with vomiting. She was seen in ED last night with US suggestive of acute cholecystitis/cholelithiasis and an elevated lipase. Lipase is more elevated this AM. She has had similar symptoms in the past. Allergies Allergy/AdvReac Type Severity Reaction Status Date / Time No Known Allergies Allergy Unverified 01/04/24 21:12 Home Medications Medication Instructions Recorded Confirmed Type blood sugar diagnostic (ReliOn 11/19/22 01/04/24 History Prime Test Strips) cholecalciferol (vitamin D3) 50 50 mcg PO DAILY 11/19/22 01/04/24 History mcg (2,000 unit) capsule pen needle, diabetic 32 gauge x #100 ea 12/16/22 01/04/24 Rx 5/32" (BD Ultra-Fine Chichi Pen Needle) omega-3 fatty acids 1,000 mg 2,000 mg PO BID 01/07/23 01/04/24 History capsule (Fish Oil Concentrate) levothyroxine 125 mcg tablet 125 mcg PO DAILY #90 tabs 02/08/23 01/04/24 Rx labetalol 100 mg tablet 100 mg PO DAILY #90 tabs 05/11/23 01/04/24 Rx niacin 1,000 mg tablet,extended 1,000 mg PO .qhs #90 tabs 05/31/23 01/04/24 Rx release 24 hr blood-glucose sensor (FreeStyle #2 ea 10/25/23 01/04/24 Rx Adwoa 3 Sensor device) insulin glargine 100 unit/mL (3 55 unit subcut QAM 11/17/23 01/04/24 History mL) subcutaneous pen (Lantus Solostar U-100 Insulin) rosuvastatin 20 mg tablet 20 mg PO DAILY #90 tabs 11/17/23 01/04/24 Rx tirzepatide 12.5 mg/0.5 mL 12.5 mg (0.5 mL) subcut Q7D #2 mL 11/17/23 01/04/24 Rx subcutaneous pen injector metformin 1,000 mg tablet 1,000 mg PO BID #60 tabs 12/22/23 01/04/24 Rx Patient History Medical History Cervical high risk HPV (human papillomavirus) test positive Menstrual periods irregular Secondary amenorrhea Vitamin D deficiency Obesity, morbid Hx of migraines Surgical History No pertinent past surgical history Family History Father Colorectal cancer Myocardial infarction Coronary heart disease Diabetes Dyslipidemia Mother Ovarian cancer Diabetes Dyslipidemia Hypothyroidism Alzheimer disease Brother Hypertension Sister Hypertension Grandmother (Maternal) Hyperthyroidism Denies family history of Prostate cancer Breast cancer Social History Smoking Status: Never smoker Second Hand Exposure: No; Do You Dip or Chew Tobacco: No; Hx Alcohol Use: No Hx Substance Use: No Preferred Language: Georgian Communication Ability: Effective Visual Impairment: No Limitations Hearing Ability: Normal Functional Architect Required: No Beliefs That Will Affect Care: None marital status: Current Living Situation: Spouse current occupational status: employed Feels Safe at Home: Yes Childhood Exposure to Second-Hand Smoke: Yes Diet: regular Dental Care, Regularly: Yes Physical Activity Frequency: 3-4 Times per Week Seatbelt Use: always Sunscreen Use: Yes Assistive Devices: Glasses Review of Systems Constitutional: + anorexia; no fever and no chills Eyes: no problem reported Ear, Nose, Mouth, Throat: no pain with swallowing Respiratory: no cough and no dyspnea Cardiovascular: no chest pain Gastrointestinal: + abdominal pain, + nausea and + vomitin g; no change in bowel habits Genitourinary: no dysuria Musculoskeletal: no back pain Integumentary: no problem reported Neurologic: no localized weakness and no generalized weakness Psychiatric: no behavioral changes Endocrine: no problem reported Hematologic / Lymphatic: no easy bleeding Physical Exam Constitutional: WD/WN, vitals as above Eyes: PERRL, conjunctivae normal, anicteric sclerae ENMT: external ear and nose normal, oropharynx normal Respiratory: normal respiratory effort, lungs clear to auscultation Cardiovascular: RRR, no murmur, no edema Gastrointestinal (Abdomen): Inspection/Auscultation: abdomen normal to inspection and normal bowel sounds; abdomen not distended Percussion/Palpation: + abdomen tender and abdomen soft; no guarding and abdomen not rigid Musculoskeletal: Head/Neck/Chest: normocephalic and head atraumatic Skin: no rashes, warm and dry Results & Data Vital Signs (Past 12 Hours) Vital Signs Temp Pulse Pulse Resp BP BP Pulse Ox 01/05/24 08:20 36.4 C L 82 16 120/81 97 01/04/24 23:30 01/04/24 23:13 36.5 C 91 H 16 144/86 H 97 01/04/24 22:54 85 18 100/65 96 O2 Del Method 01/05/24 08:20 Room Air 01/04/24 23:30 Room Air 01/04/24 23:13 Room Air 01/04/24 22:54 Room Air Diagnostic Findings EXAM: US Abdomen Limited, Gallbladder CLINICAL HISTORY: Reason for exam: upper abd pain, elevated lipase, abnormal gb on ct. TECHNIQUE: Real-time ultrasound of the right upper quadrant with image documentation. COMPARISON: CT abdomen and pelvis of the same date FINDINGS: Liver: Liver measures 18 cm, enlarged. Increased echogenicity. No focal lesion. Patent, normally directed portal vein. Gallbladder: Cholelithiasis. Borderline gallbladder wall thickness measuring 3 mm. Alvarado sign indeterminate due to analgesia. Common bile duct: No biliary dilatation. Common bile duct 3 mm. Pancreas: Pancreas appears unremarkable as visualized. Right kidney: Right kidney measures 12.3 cm. No hydronephrosis. IMPRESSION: 1. Cholelithiasis and borderline gallbladder wall thickening. Imaging appearance is not especially suggestive of cholecystitis, but clinical correlation required. 2. Hepatomegaly and steatosis.
--- NOTE | 2024-01-05 09:07 | Anesthesiology Consultation ---
Date of Service January 05, 2024 Assessment & Plan Chart Review Chart Review: head sawyer automatic initiated History Surgery Operation Date: 01/05/24 10:10 Proposed Procedures p Laparoscopic Cholecystectomy, Possible Cholangiogram - Ruddy Garner MD Height/Weight Height: 5 ft 6 in Weight: 120.4 kg Allergies Allergy/AdvReac Type Severity Reaction Status Date / Time No Known Allergies Allergy Unverified 01/04/24 21:12 Medications Home Medications Medication Instructions Recorded Confirmed Last Taken blood sugar diagnostic (ReliOn 11/19/22 01/04/24 Unknown Prime Test Strips) cholecalciferol (vitamin D3) 50 50 mcg PO DAILY 11/19/22 01/04/24 Unknown mcg (2,000 unit) capsule pen needle, diabetic 32 gauge x #100 ea 12/16/22 01/04/24 Unknown " (BD Ultra-Fine Chichi Pen Needle) omega-3 fatty acids 1,000 mg 2,000 mg PO BID 01/07/23 01/04/24 01/04/24 06:00 capsule (Fish Oil Concentrate) levothyroxine 125 mcg tablet 125 mcg PO DAILY #90 tabs 02/08/23 01/04/24 01/04/24 06:00 labetalol 100 mg tablet 100 mg PO DAILY #90 tabs 05/11/23 01/04/24 01/04/24 12:00 niacin 1,000 mg tablet,extended 1,000 mg PO .qhs #90 tabs 05/31/23 01/04/24 Unknown release 24 hr blood-glucose sensor (FreeStyle #2 ea 10/25/23 01/04/24 Unknown Adwoa 3 Sensor device) insulin glargine 100 unit/mL (3 55 unit subcut QAM 11/17/23 01/04/24 01/04/24 06:00 mL) subcutaneous pen (Lantus Solostar U-100 Insulin) rosuvastatin 20 mg tablet 20 mg PO DAILY #90 tabs 11/17/23 01/04/24 01/04/24 06:00 tirzepatide 12.5 mg/0.5 mL 12.5 mg (0.5 mL) subcut Q7D #2 mL 11/17/23 01/04/24 01/01/24 subcutaneous pen injector metformin 1,000 mg tablet 1,000 mg PO BID #60 tabs 12/22/23 01/04/24 01/04/24 06:00 Active Medications Generic Name Dose Route Start Last Admin Trade Name Royal PRN Reason Stop Dose Admin Acetaminophen 650 mg 01/04/24 23:26 01/04/24 23:50 Acetaminophen 325 Mg Tab PO 02/03/24 23:25 650 mg Q4H PRN Administration pain/fever Potassium Chloride/Sodium Chloride 20 meq in 1,000 mls @ 100 mls/hr 01/04/24 22:00 01/04/24 23:51 Normal Saline W/20 Meq Kcl IV 01/05/24 17:59 100 mls/hr .Q10H CELIO Administration Protocol Insulin Aspart 0 units 01/05/24 06:00 01/05/24 06:02 Insulin Aspart Per Unit Charge SC 02/04/24 05:59 Not Given Q6 CELIO Levothyroxine Sodium 125 mcg 01/05/24 06:30 01/05/24 06:02 Levothyroxine Sodium 125 Mcg Tablet PO 02/04/24 06:29 125 mcg DAILYBB CELIO Administration Past Medical History Medical History Cervical high risk HPV (human papillomavirus) test positive Menstrual periods irregular Secondary amenorrhea Vitamin D deficiency Obesity, morbid Hx of migraines Past Family History Family History Father Colorectal cancer Myocardial infarction Coronary heart disease Diabetes Dyslipidemia Mother Ovarian cancer Diabetes Dyslipidemia Hypothyroidism Alzheimer disease Brother Hypertension Sister Hypertension Grandmother (Maternal) Hyperthyroidism Denies family history of Prostate cancer Breast cancer Past Surgical History Surgical History No pertinent past surgical history Social History Smoking Status: Never smoker Do You Dip or Chew Tobacco: No Hx Alcohol Use: No Hx Substance Use: No Physical Exam Vital Signs Last Vital Signs Temp 97.5 F L 01/05/24 08:20 Pulse 82 01/05/24 08:20 Resp 16 01/05/24 08:20 BP 120/81 01/05/24 08:20 Pulse Ox 97 01/05/24 08:20 O2 Del Method Room Air 01/05/24 08:20 Testing Laboratory Results 01/05/24 06:15 01/05/24 06:15 01/05/24 05:47 POC Glucose 82
[2024-01-05] MEDS: LANTUS PER UNIT CHARGE SQ SCH (09:59)
[2024-01-05 11:29] LABS: Appearance Urine Clear (Clear); Bacteria Urine Automated None Seen (None Seen); Bilirubin Urine Negative (Negative); Blood Urine Negative (Negative); Cast Urine Automated 0-2 /lpf (0-2); Color Urine Yellow; Glucose Urine UA Negative (Negative); Ketones Urine Negative (Negative); Leukocyte Esterase Urine Trace (Negative); Nitrite Urine Negative (Negative); Protein Urine Negative (Negative); RBC Urine Automated 0-2 /hpf (0-2); Specific Gravity Urine 1.029 (1.000-1.030); Urobilinogen Urine Negative (Negative)
[2024-01-05] MEDS: MoRPHine SULFATE 2 MG/ML CARP ONE (11:35)
[2024-01-05] MEDS: SINCALIDE 2.4 MCG in 0.9 % SODIUM CHLORIDE 100 ML IV ONE (11:38)
[2024-01-05] MEDS: PANTOprazole 40 MG in SYRINGE 0 ML IV SCH (12:19)
--- NOTE | 2024-01-05 12:20 | Nuclear Medicine Report ---
NUCLEAR HEPATOBILIARY SCAN CLINICAL HISTORY: Right upper quadrant abdominal pain. Cholecystitis. COMPARISON STUDY: Abdominal ultrasound and CT dated 01/04/2024. TECHNIQUE: Dynamic images of the liver and anterior abdomen were obtained every 5 minutes for a total of 60 minutes following the IV administration of 6.0 mCi of technetium 99m Mebrofenin. The gallbladd er was not visualized at 60 minutes. 2 mg of IV morphine was administered, with additional imaging p erformed every 5 minutes for additional 30 minutes. FINDINGS: The hepatobiliary scan shows prompt and homogeneous hepatic uptake. There is visualized act ivity within the intra and extrahepatic biliary tree at 15 minutes. There is normal biliary to bowel transit, with small bowel visualized by 25 minutes. The gallbladder is not visualized at 60 minutes. The gallbladder is seen at 70 minutes following morphine administration. IMPRESSION: The gallbladder was visualized following morphine administration. There is no scintigraph ic evidence of acute cholecystitis/cystic duct obstruction. ACT 112: Negative or not required by law. Electronically signed by: Jose Samaniego M.D. 01/05/2024 12:19 PM
--- NOTE | 2024-01-05 12:50 | Hospitalist Progress Note ---
Date of Service January 05, 2024 Assessment & Plan (1) Abnormal findings on diagnostic imaging of gallbladder: Plan: Cholelithiasis noted. HIDA scan negative for acute cholecystitis. I suspect she passed a gallstone causing her symptoms which have now resolved. Appreciate general surgery consultation and recommendations. I anticipate laparoscopic cholecystectomy will be done this admission (2) Pancreatitis: Plan: No overt pancreatitis although lipase has increased to 451. Will follow. (3) Dyslipidemia: Plan: By history. Stable. Continue current medical management (4) Hypothyroidism: Plan: Stable. Continue current medical management (5) Hypertension: Plan: Stable. Continue current medical management (6) Uncontrolled type 2 diabetes mellitus with hyperglycemia: Plan: Currently NPO. ADA diet when she is allowed to eat again. Sliding scale coverage for now. (7) Obesity, morbid: Plan: Significant weight loss recommended Plan Eventual return to home later this week. Admission and Anticipated Discharge Date Admission Date: January 04, 2024 Subjective Alert and oriented. Currently asymptomatic. HIDA scan is negative for acute cholecystitis. I suspect she passed a stone since she has cholelithiasis and the pain is now resolved. Unfortunately, her lipase has increased to 451 although she has no overt pancreatitis at this time. Appreciate general surgery consultation and recommendations. I would recommend laparoscopic cholecystectomy as soon as possible to prevent her symptoms from recurring and/or getting worse Review of Systems 2 Review of Systems: Constitutional-no fever or chills ENT-no blurred vision, no double vision, no epistaxis, no sore throat Respiratory-no cough, no wheezing, no shortness of breath Cardiac-no palpitations, no chest pain, no syncope GI-no nausea, vomiting, diarrhea, melena, hematochezia -no urinary retention, no urinary incontinence, no dysuria, no hematuria Musculoskeletal-no joint pain, no muscle tenderness Skin-no bruising, no rashes, no pruritus Neuro-no isolated weakness, no paresthesia, no weakness Psych-no depression, no anxiety Physical Exam 2 Physical Exam: General-alert and oriented x3, no fever, no chills. Obese HEENT-head atraumatic and normocephalic, pupils equal and reactive to light, extraocular muscles intact Neck-no lymphadenopathy or thyromegaly, trachea midline Chest-clear to auscultation. No rales, wheezing or rhonchi Cardiac-regular rate and rhythm, normal S1 and S2 Abdomen-normal bowel sounds, no hepatosplenomegaly Extremities-no cyanosis, clubbing, or edema Neuro-cranial nerves II through XII intact, motor and sensory function within normal limits, strength symmetrical, no focal deficits Psych-normal affect, normal mood Results & Data Results & Data Vital Signs (Past 12 Hours) Vital Signs Temp Pulse Resp BP Pulse Ox O2 Del Method 01/05/24 08:20 36.4 C L 82 16 120/81 97 Room Air 01/05/24 07:25 Room Air Laboratory Results 01/05/24 06:15 01/05/24 06:15 PG Care Time/CCT Total # of Minutes Spent Total Time Spent with Patient: Total time spent is greater than 50% in coordination of care (as documented) at patient's floor/unit and/or counseling patient: Coding Level of Care Code 69242 SUB INP/OBS CARE 3/50MIN Diagnoses Abnormal findings on diagnostic imaging of gallbladder R93.2 Pancreatitis K85.90 Dyslipidemia E78.5 Acquired hypothyroidism E03.9 Hypothyroidism type: acquired Primary hypertension I10 Hypertension type: primary hypertension Uncontrolled type 2 diabetes mellitus with hyperglycemia E11.65 Obesity, morbid E66.01 (4) Hypothyroidism Hypothyroidism type: acquired Qualified Code(s): E03.9 - Hypothyroidism, unspecified (5) Hypertension Hypertension type: primary hypertension Qualified Code(s): I10 - Essential (primary) hypertension
[2024-01-05] MEDS ORDERED: MIDAZOLAM HCL 1 MG/ML 2ML VIAL ONE (13:50)
[2024-01-05] MEDS ORDERED: LIDOCAINE 2% 2 ML VIAL/AMP(20MG/ML) INFIL ONE ×2 (13:50→13:53)
[2024-01-05] MEDS ORDERED: ROCURONIUM BROMIDE 10 MG/ML 5 ML VIAL IV ONE (13:50)
[2024-01-05] MEDS ORDERED: SUGAMMADEX SODIUM 200 MG/2 ML VIAL IV ONE (13:50)
[2024-01-05] MEDS ORDERED: DEXAMETHASONE SOD INJ 4 MG/ML VIAL ONE (13:50)
[2024-01-05] MEDS ORDERED: fentaNYL citrate PF 100 MCG/2 ML VIAL ONE ×2 (13:50→15:28)
[2024-01-05] MEDS ORDERED: PROPOFOL IV EMULSION 10 MG/ML 20 ML VIAL IV ONE (13:50)
[2024-01-05] MEDS ORDERED: ONDANSETRON INJ 2 MG/ML 2 ML VIAL ONE (13:50)
[2024-01-05] MEDS ORDERED: ONDANSETRON INJ 2 MG/ML 2 ML VIAL IV PRN (13:58)
[2024-01-05] MEDS ORDERED: ePHEDrine sulfate 50 MG/ML AMP IV PRN (13:58)
[2024-01-05] MEDS ORDERED: ATROPINE SULFATE 0.1 MG/ML 10ML SYR IV PRN (13:58)
[2024-01-05] MEDS ORDERED: cefOXitin SOD 1,000 MG VIAL ONE (14:37)
[2024-01-05] MEDS ORDERED: KETOROLAC 30 MG/ML VIAL ONE (14:59)
[2024-01-05] MEDS ORDERED: OPTIRAY 350 INSTIL PRN ×2 (15:10→15:41)
[2024-01-05] MEDS: BUPIVACAINE/EPINEPHRINE 0.5% MPF 1:200,000 30 ML VIAL ONE (15:19)
--- NOTE | 2024-01-05 15:27 | Operative Report ---
Post Operative Report Pre & Post Diagnosis Operation Date: 01/05/24 10:10 Pre-Op Diagnosis: Acute Cholecystitis Post-Op Diagnosis: Acute Cholecystitis I identified the patient and participated in the time-out.: Yes Procedure Operation Date: 01/05/24 10:10 Actual Procedures p Laparoscopic Cholecystectomy, Cholangiogram(Not Applicable) - Ruddy Garner MD Surgeon Ruddy Garner MD Wool Hanker Maria M Bhatt PA-C Estimated Blood Loss 15 Findings Consistent with Post-Op Diagnosis Acute cholecystitis, intraoperative cholangiogram with no filling defects and both hepatic radicles. Contrast into the duodenum without obstruction. Specimens Gallbladder to pathology Drains None Anesthesia Type General Complications None Indications This is a 38-year-old female admitted with acute cholecystitis. She also had an elevation of her amylase consistent with possible pancreatitis. CT scan was done which showed no obvious pancreatitis. Will plan on doing a lap milla with intraoperative cholangiogram. She understands all the risks in detail. Description of Procedure The patient was taken the OR, placed in the supine position and underwent excellent general endotracheal anesthesia. Their abdomen is prepped and draped normal sterile fashion. A transverse supraumbilical incision was made and dissection was taken down to identify the anterior fascia. Two Vicryl sutures were placed on either side of the midline and his midline was then incised. The peritoneal cavity was entered bluntly with Kendra clamp. A 12mm Melgar trocar was then inserted and secured. Good pneumoperitoneum was achieved to 15 mmHg pressure. Patient is placed in head up and rolled to the left. A 11mm subxiphoid and two 5mm lateral ports were placed in the normal fashion. The gallbladder was identified and was slightly inflamed. An aspirator was then used to aspirate the gallbladder. This then facilitated grasping the the fundus of the gallbladder which was retracted superiorly. The neck of the gallbladder was grasped and then retracted laterally. This splayed open the Hepatocystic triangle. Attention was then to taking down the peritoneal attachments to identify the cystic duct and cystic artery. Once these were skeletonized and a medial and lateral window was created between the gallbladder fossa and the duct, thereby ensuring the critical view. Two clips were then placed approximately cystic artery one distally, the cystic artery was transected. A clip was then placed proximally on cystic duct and it was partially transected. An intraoperative cholangiogram catheter was then inserted through an angiocath in the anterior abdominal wall. The catheter was fed into the cystic duct and secured. Interoperative cholangiogram was performed which showed no filling defects in the common duct and both hepatic radicles filling. The cholangiogram catheter was removed. Three clips were then placed distally on the cystic duct and the cystic duct was transected. An electrocautery hook was then used to move the gallbladder off the gallbladder fossa. The gallbladder was then placed into an Endobag and brought out through the supraumbilical incision. The pneumoperitoneum was re-established and abdomen was irrigated out until the suction fluid was clear. There were some areas on the gallbladder fossa which were raw and were cauterized. The ports were then removed and the abdomen decompressed. The fascia of the supraumbilical incision was closed with Vicryls. 0.5% Marcaine with epinephrine local was to create a local field block. Interrupted Vicryl was used to close the skin. Dermabond was used to reinforce the incisions. Sterile dressings were applied. The patient tolerated the procedure without complication and sent to the postop recovery period of observation. Maria M Bhatt PA-C was present and participated in the entire procedure. She was integral in skin closure, retraction, and camera manipulation. There was no qualified resident available to assist. I attest to the content of the Intraoperative Record and any orders documented therein. Any exceptions are noted below.
[2024-01-05] MEDS: fentaNYL citrate PF 100 MCG/2 ML VIAL IV PRN (15:47)
--- NOTE | 2024-01-05 15:49 | Fluoroscopy Report ---
INTRAOPERATIVE RADIOGRAPHS CLINICAL HISTORY: Intraoperative cholangiogram. Fluoro time: 21 seconds Ka,r: 6.51 mGy FINDINGS: 3 spot fluoroscopic views of the right upper quadrant from an intraoperative cholangiogram are correlated with abdominal CT dated 01/04/2024. Cholecystectomy clips are noted. There is smooth con trast opacification of the common bile duct. No intraluminal filling defects are seen to suggest chol edocholithiasis. There is no intrahepatic biliary ductal dilatation. There is free passage of contras t into the duodenum. IMPRESSION: Intraoperative cholangiogram images as above. Electronically signed by: Jose Samaniego M.D. 01/05/2024 3:47 PM
--- NOTE | 2024-01-05 15:50 | Anesthesiology Progress Note ---
Date of Service January 05, 2024 Anesthesia Post Procedure Vital Signs Vital Signs: Temp Pulse Pulse Resp BP BP Pulse Ox 01/05/24 08:20 97.5 F L 82 16 120/81 97 01/05/24 07:25 01/04/24 23:30 01/04/24 23:13 97.7 F 91 H 16 144/86 H 97 01/04/24 22:54 85 18 100/65 96 01/04/24 19:00 86 18 133/75 99 01/04/24 18:00 87 19 120/78 97 01/04/24 16:58 92 H 01/04/24 16:57 94 H 23 122/76 97 O2 Del Method 01/05/24 08:20 Room Air 01/05/24 07:25 Room Air 01/04/24 23:30 Room Air 01/04/24 23:13 Room Air 01/04/24 22:54 Room Air 01/04/24 19:00 Room Air 01/04/24 18:00 Room Air 01/04/24 16:58 01/04/24 16:57 Transfer of Care Handoff Completed per policy Notes Mental Status: alert / awake / arousable and participated in evaluation Patient Amnestic to Procedure: Yes Nausea / Vomiting: adequately controlled Pain: adequately controlled Airway Patency, RR, SpO2: stable & adequate BP & HR: stable & adequate Hydration State: stable & adequate Anesthetic Complications: no major complications apparent and Pt Satisfied with anesthetic care
[2024-01-05] MEDS ORDERED: MoRPHine SULFATE 4 MG/ML 1 ML CARP\\VIAL IV PRN (16:33)
[2024-01-05] MEDS ORDERED: Nursing to Pharmacy Communication SCH (16:45)
[2024-01-05] MEDS: oxyCODONE/ACETAMINOPHEN 5mg/325mg TAB PO PRN (18:05)
[2024-01-05] MEDS: cefTRIAXone SODIUM 2,000 MG/50 ML BAG IV SCH (20:49)
[2024-01-05] MEDS: MoRPHine SULFATE 2 MG/ML CARP IV PRN (20:49)
[2024-01-06] MEDS: oxyCODONE/ACETAMINOPHEN 5mg/325mg TAB PO PRN (06:14)
[2024-01-06 07:02] LABS: Basophils # (auto) 0.03 K/uL (0.00-0.20); Basophils % (auto) 0.2 %; Eosinophils # (auto) 0.61 K/uL (0.00-0.50); Eosinophils % (auto) 3.7 %; Hematocrit (blood only) 36.8 % (37.0-47.0); Hemoglobin 12.4 g/dl (12.0-16.0); Immature Granulocytes # (auto) 0.08 K/uL (0.01-0.20); Immature Granulocytes % (auto) 0.5 %; Lymphocytes # (auto) 2.23 K/uL (1.20-3.40); Lymphocytes % (auto) 13.6 %; Mean Corpuscular Hemoglobin 29.6 pg (25.0-34.0); Mean Corpuscular Hgb Conc 33.7 g/dL (32.0-36.0); Mean Corpuscular Volume 87.8 fL (80.0-100.0); Mean Platelet Volume 8.8 fL (9.4-12.4); Monocytes # (auto) 0.44 K/uL (0.11-0.59); Monocytes % (auto) 2.7 %; Neutrophils # (auto) 13.02 K/uL (1.40-6.50); Neutrophils % (auto) 79.3 %; Platelet Count 383 K/uL (130-400); RDW Coefficient of Variation 12.5 % (11.5-14.5); RDW Standard Deviation 39.8 fL (36.4-46.3); Red Blood Count 4.19 M/uL (4.20-5.40); White Blood Count 16.41 K/ul (4.8-10.8)
[2024-01-06 07:24] LABS: Albumin Level 3.6 gm/dl (3.4-5.0); Bilirubin Direct 0.2 mg/dl (0-0.2); Bilirubin,Total 0.5 mg/dl (0.2-1.0); Total Protein 6.5 gm/dl (6.0-8.3)
[2024-01-06 07:28] LABS: Albumin Globulin Ratio 1.3 (0.9-2); Albumin Level 3.6 gm/dl (3.4-5.0); BUN Creatinine Ratio 14.3 (10-20); Bilirubin,Total 0.5 mg/dl (0.2-1.0); Calcium 8.3 mg/dl (8.6-10.3); Creatinine Clr Calc Pharmacy 203.8 ml/min; Est GFR (African American) 142.2 ml/min; Est GFR (Non-African American) 122.7 ml/min; Globulin 2.8 gm/dl (2.5-4.0); Magnesium 1.4 mg/dl (1.7-2.4); Total Protein 6.4 gm/dl (6.0-8.3)
[2024-01-06] MEDS: LEVOTHYROXINE SODIUM 125 MCG TABLET PO SCH (09:32)
--- NOTE | 2024-01-06 10:06 | Surgery Progress Note ---
Date of Service January 06, 2024 Assessment & Plan (1) Acute calculous cholecystitis: Plan: POD# 1 s/p lap milla with IOC avss postop pain mild and controlled tolerating diet leukocytosis of 16k t. bili normal lipase improved Plan: ADAT pain management ambulate incentive doing well from surgical standpoint for discharge discharge instrctions provided 2 week follow-up in surgery office Rx for Percocet sent to pharmacy Dr. Garner has seen patient agrees with above (2) Elevated amylase: Plan: IOC without choledocholithiasis Admission and Anticipated Discharge Date Admission Date: January 04, 2024 Subjective feeling good pain controlled tolerated full liquids urinating and ambulating without difficulty Physical Exam Constitutional: WD/WN, vitals as above + obese, cooperative and comfortable; no acute distress and not ill appearing Respiratory: normal respiratory effort; no respiratory distress, no labored breathing and no retractions Cardiovascular: Rate/Rhythm: regular rate and regular rhythm Heart Sounds: normal S1 and normal S2 Gastrointestinal (Abdomen): Inspection/Auscultation: abdomen normal to inspection and + abdominal surgical incision (c/d/i with dermabond); abdomen not distended Percussion/Palpation: + abdomen tender (mild at incision sites appropriate postop); no guarding, abdomen not rigid and abdomen not firm Skin: no rashes, warm and dry no jaundice Psychiatric: A+Ox3, euthymic affect Results & Data Vital Signs (Past 12 Hours) Vital Signs Temp Pulse Pulse Resp BP Pulse Ox O2 Del Method 01/06/24 07:45 36.8 C 102 H 20 158/86 H 96 Room Air 01/06/24 03:00 36.6 C 98 H 18 149/83 H 95 Room Air 01/05/24 23:03 36.7 C 102 H 16 141/87 H 94 Room Air 01/05/24 22:55 Room Air Laboratory Results 01/06/24 01/06/24 01/06/24 Range/Units 07:55 06:02 06:02 WBC (4.8-10.8) K/ul RBC (4.20-5.40) M/uL Hgb (12.0-16.0) g/dl Hct (37.0-47.0) % MCV (80.0-100.0) fL MCH (25.0-34.0) pg MCHC (32.0-36.0) g/dL RDW Std Deviation (36.4-46.3) fL RDW Coeff of Papa (11.5-14.5) % Plt Count (130-400) K/uL MPV (9.4-12.4) fL Immature Gran % (Auto) % Neut % (Auto) % Lymph % (Auto) % Prentiss % (Auto) % Eos % (Auto) % Baso % (Auto) % Neut # (Auto) (1.40-6.50) K/uL Lymph # (Auto) (1.20-3.40) K/uL Prentiss # (Auto) (0.11-0.59) K/uL Eos # (Auto) (0.00-0.50) K/uL Baso # (Auto) (0.00-0.20) K/uL Immature Gran # (Auto) (0.01-0.20) K/uL Sodium (136-145) mmol/L Potassium (3.5-5.1) mmol/L Chloride (98-107) mmol/L Carbon Dioxide (21-32) mmol/L Anion Gap (3-11) BUN (6-23) mg/dl Creatinine (0.6-1.2) mg/dl Est Cr Clr Drug Dosing ml/min Est GFR ( Amer) ml/min Est GFR (Non-Af Amer) ml/min BUN/Creatinine Ratio (10-20) Glucose (70-99(Fasting)) mg/dl POC Glucose 143 H (70-99) mg/dl Calcium (8.6-10.3) mg/dl Magnesium (1.7-2.4) mg/dl Total Bilirubin (0.2-1.0) mg/dl Direct Bilirubin (0-0.2) mg/dl AST (13-39) U/L ALT (7-52) U/L Alkaline Phosphatase (34-104) U/L Total Protein (6.0-8.3) gm/dl Albumin 3.6 (3.4-5.0) gm/dl Globulin 2.8 (2.5-4.0) gm/dl Albumin/Globulin Ratio 1.3 (0.9-2) Amylase 146 H (25-115) U/L Lipase 203 H 204 H (11-82) U/L Urine Color Urine Appearance (Clear) Urine pH (4.5-7.5) Ur Specific Rogers (1.000-1.030) Urine Protein (Negative) Urine Glucose (UA) (Negative) Urine Ketones (Negative) Urine Blood (Negative) Urine Nitrite (Negative) Urine Bilirubin (Negative) Urine Urobilinogen (Negative) Ur Leukocyte Esterase (Negative) Urine WBC (Auto) (0-5) /hpf Urine RBC (Auto) (0-2) /hpf U Hyaline Cast (Auto) (0-2) /lpf U Epithel Cells (Auto) (0-2) /hpf Urine Bacteria (Auto) (None Seen) 01/06/24 01/06/24 01/06/24 Range/Units 06:02 06:02 06:02 WBC (4.8-10.8) K/ul RBC (4.20-5.40) M/uL Hgb (12.0-16.0) g/dl Hct (37.0-47.0) % MCV (80.0-100.0) fL MCH (25.0-34.0) pg MCHC (32.0-36.0) g/dL RDW Std Deviation (36.4-46.3) fL RDW Coeff of Papa (11.5-14.5) % Plt Count (130-400) K/uL MPV (9.4-12.4) fL Immature Gran % (Auto) % Neut % (Auto) % Lymph % (Auto) % Prentiss % (Auto) % Eos % (Auto) % Baso % (Auto) % Neut # (Auto) (1.40-6.50) K/uL Lymph # (Auto) (1.20-3.40) K/uL Prentiss # (Auto) (0.11-0.59) K/uL Eos # (Auto) (0.00-0.50) K/uL Baso # (Auto) (0.00-0.20) K/uL Immature Gran # (Auto) (0.01-0.20) K/uL Sodium (136-145) mmol/L Potassium (3.5-5.1) mmol/L Chloride (98-107) mmol/L Carbon Dioxide (21-32) mmol/L Anion Gap (3-11) BUN (6-23) mg/dl Creatinine (0.6-1.2) mg/dl Est Cr Clr Drug Dosing ml/min Est GFR ( Amer) ml/min Est GFR (Non-Af Amer) ml/min BUN/Creatinine Ratio (10-20) Glucose (70-99(Fasting)) mg/dl POC Glucose (70-99) mg/dl Calcium (8.6-10.3) mg/dl Magnesium (1.7-2.4) mg/dl Total Bilirubin (0.2-1.0) mg/dl Direct Bilirubin (0-0.2) mg/dl AST (13-39) U/L ALT 66 H (7-52) U/L Alkaline Phosphatase 105 H 104 (34-104) U/L Total Protein 6.5 6.4 (6.0-8.3) gm/dl Albumin 3.6 (3.4-5.0) gm/dl Globulin (2.5-4.0) gm/dl Albumin/Globulin Ratio (0.9-2) Amylase (25-115) U/L Lipase (11-82) U/L Urine Color Urine Appearance (Clear) Urine pH (4.5-7.5) Ur Specific Rogers (1.000-1.030) Urine Protein (Negative) Urine Glucose (UA) (Negative) Urine Ketones (Negative) Urine Blood (Negative) Urine Nitrite (Negative) Urine Bilirubin (Negative) Urine Urobilinogen (Negative) Ur Leukocyte Esterase (Negative) Urine WBC (Auto) (0-5) /hpf Urine RBC (Auto) (0-2) /hpf U Hyaline Cast (Auto) (0-2) /lpf U Epithel Cells (Auto) (0-2) /hpf Urine Bacteria (Auto) (None Seen) 01/06/24 01/06/24 01/06/24 Range/Units 06:02 06:02 06:02 WBC 16.41 H (4.8-10.8) K/ul RBC 4.19 L (4.20-5.40) M/uL Hgb 12.4 (12.0-16.0) g/dl Hct 36.8 L (37.0-47.0) % MCV 87.8 (80.0-100.0) fL MCH 29.6 (25.0-34.0) pg MCHC 33.7 (32.0-36.0) g/dL RDW Std Deviation 39.8 (36.4-46.3) fL RDW Coeff of Papa 12.5 (11.5-14.5) % Plt Count 383 (130-400) K/uL MPV 8.8 L (9.4-12.4) fL Immature Gran % (Auto) 0.5 % Neut % (Auto) 79.3 % Lymph % (Auto) 13.6 % Prentiss % (Auto) 2.7 % Eos % (Auto) 3.7 % Baso % (Auto) 0.2 % Neut # (Auto) 13.02 H (1.40-6.50) K/uL Lymph # (Auto) 2.23 (1.20-3.40) K/uL Prentiss # (Auto) 0.44 (0.11-0.59) K/uL Eos # (Auto) 0.61 H (0.00-0.50) K/uL Baso # (Auto) 0.03 (0.00-0.20) K/uL Immature Gran # (Auto) 0.08 (0.01-0.20) K/uL Sodium 139 (136-145) mmol/L Potassium 4.0 (3.5-5.1) mmol/L Chloride 107 (98-107) mmol/L Carbon Dioxide 22 (21-32) mmol/L Anion Gap 10 (3-11) BUN 7 (6-23) mg/dl Creatinine 0.49 L (0.6-1.2) mg/dl Est Cr Clr Drug Dosing 203.8 ml/min Est GFR ( Amer) 142.2 ml/min Est GFR (Non-Af Amer) 122.7 ml/min BUN/Creatinine Ratio 14.3 (10-20) Glucose 138 H (70-99(Fasting)) mg/dl POC Glucose (70-99) mg/dl Calcium 8.3 L (8.6-10.3) mg/dl Magnesium 1.4 L (1.7-2.4) mg/dl Total Bilirubin 0.5 0.5 (0.2-1.0) mg/dl Direct Bilirubin 0.2 (0-0.2) mg/dl AST 70 H 70 H (13-39) U/L ALT 66 H (7-52) U/L Alkaline Phosphatase (34-104) U/L Total Protein (6.0-8.3) gm/dl Albumin (3.4-5.0) gm/dl Globulin (2.5-4.0) gm/dl Albumin/Globulin Ratio (0.9-2) Amylase (25-115) U/L Lipase (11-82) U/L Urine Color Urine Appearance (Clear) Urine pH (4.5-7.5) Ur Specific Rogers (1.000-1.030) Urine Protein (Negative) Urine Glucose (UA) (Negative) Urine Ketones (Negative) Urine Blood (Negative) Urine Nitrite (Negative) Urine Bilirubin (Negative) Urine Urobilinogen (Negative) Ur Leukocyte Esterase (Negative) Urine WBC (Auto) (0-5) /hpf Urine RBC (Auto) (0-2) /hpf U Hyaline Cast (Auto) (0-2) /lpf U Epithel Cells (Auto) (0-2) /hpf Urine Bacteria (Auto) (None Seen) 01/05/24 01/05/24 01/05/24 Range/Units 20:43 16:42 15:53 WBC (4.8-10.8) K/ul RBC (4.20-5.40) M/uL Hgb (12.0-16.0) g/dl Hct (37.0-47.0) % MCV (80.0-100.0) fL MCH (25.0-34.0) pg MCHC (32.0-36.0) g/dL RDW Std Deviation (36.4-46.3) fL RDW Coeff of Papa (11.5-14.5) % Plt Count (130-400) K/uL MPV (9.4-12.4) fL Immature Gran % (Auto) % Neut % (Auto) % Lymph % (Auto) % Prentiss % (Auto) % Eos % (Auto) % Baso % (Auto) % Neut # (Auto) (1.40-6.50) K/uL Lymph # (Auto) (1.20-3.40) K/uL Prentiss # (Auto) (0.11-0.59) K/uL Eos # (Auto) (0.00-0.50) K/uL Baso # (Auto) (0.00-0.20) K/uL Immature Gran # (Auto) (0.01-0.20) K/uL Sodium (136-145) mmol/L Potassium (3.5-5.1) mmol/L Chloride (98-107) mmol/L Carbon Dioxide (21-32) mmol/L Anion Gap (3-11) BUN (6-23) mg/dl Creatinine (0.6-1.2) mg/dl Est Cr Clr Drug Dosing ml/min Est GFR ( Amer) ml/min Est GFR (Non-Af Amer) ml/min BUN/Creatinine Ratio (10-20) Glucose (70-99(Fasting)) mg/dl POC Glucose 200 H 105 H 90 (70-99) mg/dl Calcium (8.6-10.3) mg/dl Magnesium (1.7-2.4) mg/dl Total Bilirubin (0.2-1.0) mg/dl Direct Bilirubin (0-0.2) mg/dl AST (13-39) U/L ALT (7-52) U/L Alkaline Phosphatase (34-104) U/L Total Protein (6.0-8.3) gm/dl Albumin (3.4-5.0) gm/dl Globulin (2.5-4.0) gm/dl Albumin/Globulin Ratio (0.9-2) Amylase (25-115) U/L Lipase (11-82) U/L Urine Color Urine Appearance (Clear) Urine pH (4.5-7.5) Ur Specific Rogers (1.000-1.030) Urine Protein (Negative) Urine Glucose (UA) (Negative) Urine Ketones (Negative) Urine Blood (Negative) Urine Nitrite (Negative) Urine Bilirubin (Negative) Urine Urobilinogen (Negative) Ur Leukocyte Esterase (Negative) Urine WBC (Auto) (0-5) /hpf Urine RBC (Auto) (0-2) /hpf U Hyaline Cast (Auto) (0-2) /lpf U Epithel Cells (Auto) (0-2) /hpf Urine Bacteria (Auto) (None Seen) 01/05/24 01/05/24 Range/Units 12:17 10:10 WBC (4.8-10.8) K/ul RBC (4.20-5.40) M/uL Hgb (12.0-16.0) g/dl Hct (37.0-47.0) % MCV (80.0-100.0) fL MCH (25.0-34.0) pg MCHC (32.0-36.0) g/dL RDW Std Deviation (36.4-46.3) fL RDW Coeff of Papa (11.5-14.5) % Plt Count (130-400) K/uL MPV (9.4-12.4) fL Immature Gran % (Auto) % Neut % (Auto) % Lymph % (Auto) % Prentiss % (Auto) % Eos % (Auto) % Baso % (Auto) % Neut # (Auto) (1.40-6.50) K/uL Lymph # (Auto) (1.20-3.40) K/uL Prentiss # (Auto) (0.11-0.59) K/uL Eos # (Auto) (0.00-0.50) K/uL Baso # (Auto) (0.00-0.20) K/uL Immature Gran # (Auto) (0.01-0.20) K/uL Sodium (136-145) mmol/L Potassium (3.5-5.1) mmol/L Chloride (98-107) mmol/L Carbon Dioxide (21-32) mmol/L Anion Gap (3-11) BUN (6-23) mg/dl Creatinine (0.6-1.2) mg/dl Est Cr Clr Drug Dosing ml/min Est GFR ( Amer) ml/min Est GFR (Non-Af Amer) ml/min BUN/Creatinine Ratio (10-20) Glucose (70-99(Fasting)) mg/dl POC Glucose 75 (70-99) mg/dl Calcium (8.6-10.3) mg/dl Magnesium (1.7-2.4) mg/dl Total Bilirubin (0.2-1.0) mg/dl Direct Bilirubin (0-0.2) mg/dl AST (13-39) U/L ALT (7-52) U/L Alkaline Phosphatase (34-104) U/L Total Protein (6.0-8.3) gm/dl Albumin (3.4-5.0) gm/dl Globulin (2.5-4.0) gm/dl Albumin/Globulin Ratio (0.9-2) Amylase (25-115) U/L Lipase (11-82) U/L Urine Color Yellow Urine Appearance Clear (Clear) Urine pH 5.0 (4.5-7.5) Ur Specific Rogers 1.029 (1.000-1.030) Urine Protein Negative (Negative) Urine Glucose (UA) Negative (Negative) Urine Ketones Negative (Negative) Urine Blood Negative (Negative) Urine Nitrite Negative (Negative) Urine Bilirubin Negative (Negative) Urine Urobilinogen Negative (Negative) Ur Leukocyte Esterase Trace H (Negative) Urine WBC (Auto) 6-10 H (0-5) /hpf Urine RBC (Auto) 0-2 (0-2) /hpf U Hyaline Cast (Auto) 0-2 (0-2) /lpf U Epithel Cells (Auto) 3-5 H (0-2) /hpf Urine Bacteria (Auto) None Seen (None Seen)
[2024-01-06] MEDS: MAGNESIUM SULFATE / D5W 1 GM/100 ML BAG IV SCH (10:40)
[2024-01-06] MEDS: LABETALOL HCL 100 MG TAB PO SCH (10:48)
[2024-01-06] MEDS: PANTOprazole 40 MG TAB PO SCH (10:48)
[2024-01-06] MEDS: CHOLECALCIFEROL 25 MCG (1000 UNITS) TAB PO SCH (10:49)
--- NOTE | 2024-01-06 12:23 | Electrocardiogram Report ---
Test Reason : Blood Pressure : / mmHG Vent. Rate : 096 BPM Atrial Rate : 096 BPM P-R Int : 202 ms QRS Dur : 082 ms QT Int : 360 ms P-R-T Axes : 004 031 -04 degrees QTc Int : 454 ms Normal sinus rhythm Normal ECG No previous ECGs available Confirmed by Demario Berry ([id number] on 01/06/2024 12:23:32 PM Referred By: Freddie Cortez Confirmed By:Demario Berry
--- NOTE | 2024-01-06 12:45 | Hospitalist Progress Note ---
Date of Service January 06, 2024 Assessment & Plan (1) Abnormal findings on diagnostic imaging of gallbladder: Plan: Cholelithiasis noted. HIDA scan negative for acute cholecystitis. I suspect she passed a gallstone causing her symptoms which have now resolved. Appreciate general surgery consultation and recommendations. Laparoscopic cholecystectomy was completed yesterday, January 04. Postoperative day #1. (2) Pancreatitis: Plan: No overt pancreatitis. Lipase now down to 203. Will follow. (3) Transaminitis: Plan: Liver enzymes have bumped up slightly postoperatively. Will follow (4) Dyslipidemia: Plan: By history. Stable. Continue current medical management (5) Hypothyroidism: Plan: Stable. Continue current medical management (6) Hypertension: Plan: Labetalol restarted today, January 05, for heart rate and blood pressure control. (7) Uncontrolled type 2 diabetes mellitus with hyperglycemia: Plan: ADA diet. Sliding scale coverage. (8) Obesity, morbid: Plan: Significant weight loss recommended Plan Hopeful discharge to home tomorrow, January 06 Admission and Anticipated Discharge Date Admission Date: January 04, 2024 Subjective Alert and oriented. Postoperative day #1 after laparoscopic cholecystectomy. Case discussed with general surgery. Lipase has decreased down to 203 but LFTs are up slightly. Usual home medications have been restarted. Parenteral magnesium replacement ordered. Hopefully she can go home tomorrow, January 06 Review of Systems 2 Review of Systems: Constitutional-no fever or chills ENT-no blurred vision, no double vision, no epistaxis, no sore throat Respiratory-no cough, no wheezing, no shortness of breath Cardiac-no palpitations, no chest pain, no syncope GI-no nausea, vomiting, diarrhea, melena, hematochezia -no urinary retention, no urinary incontinence, no dysuria, no hematuria Musculoskeletal-no joint pain, no muscle tenderness Skin-no bruising, no rashes, no pruritus Neuro-no isolated weakness, no paresthesia, no weakness Psych-no depression, no anxiety Physical Exam 2 Physical Exam: General-alert and oriented x3, no fever, no chills. Obese HEENT-head atraumatic and normocephalic, pupils equal and reactive to light, extraocular muscles intact Neck-no lymphadenopathy or thyromegaly, trachea midline Chest-clear to auscultation. No rales, wheezing or rhonchi Cardiac-regular rate and rhythm, normal S1 and S2 Abdomen-normal bowel sounds, no hepatosplenomegaly. Mildly tender at surgical sites Extremities-no cyanosis, clubbing, or edema Neuro-cranial nerves II through XII intact, motor and sensory function within normal limits, strength symmetrical, no focal deficits Psych-normal affect, normal mood Results & Data Results & Data Vital Signs (Past 12 Hours) Vital Signs Temp Pulse Pulse Resp BP Pulse Ox O2 Del Method 01/06/24 12:02 36.6 C 99 H 95 H 18 125/64 95 Room Air 01/06/24 08:45 Room Air 01/06/24 07:45 36.8 C 102 H 20 158/86 H 96 Room Air 01/06/24 03:00 36.6 C 98 H 18 149/83 H 95 Room Air Laboratory Results 01/06/24 06:02 01/06/24 06:02 PG Care Time/CCT Total # of Minutes Spent Total Time Spent with Patient: Total time spent is greater than 50% in coordination of care (as documented) at patient's floor/unit and/or counseling patient: Coding Level of Care Code 19806 SUB INP/OBS CARE 3/50MIN Diagnoses Abnormal findings on diagnostic imaging of gallbladder R93.2 Pancreatitis K85.90 Transaminitis R74.01 Dyslipidemia E78.5 Acquired hypothyroidism E03.9 Hypothyroidism type: acquired Primary hypertension I10 Hypertension type: primary hypertension Uncontrolled type 2 diabetes mellitus with hyperglycemia E11.65 Obesity, morbid E66.01 (5) Hypothyroidism Hypothyroidism type: acquired Qualified Code(s): E03.9 - Hypothyroidism, unspecified (6) Hypertension Hypertension type: primary hypertension Qualified Code(s): I10 - Essential (primary) hypertension
[2024-01-06] MEDS: LORATADINE 10 MG TAB PO ONE (13:04)
--- NOTE | 2024-01-07 05:42 | Surgery Progress Note ---
Date of Service January 07, 2024 Assessment & Plan (1) Acute calculous cholecystitis: Plan: Status post laparoscopic cholecystectomy on 01/05/2024 (postoperative day #2) Continue analgesics as needed Continue antiemetics if needed Continue diet as tolerated Patient is currently receiving Rocephin which should continue while she is hospitalized Continue to mobilize as able Check a.m. labs when available If patient remains hospitalized today consideration should be given to adding Lovenox for DVT prevention as above. doing as expected. dayan diet. ok for d/c from my standpoint. instructions discussed. Admission and Anticipated Discharge Date Admission Date: January 04, 2024 Subjective Patient is currently resting comfortably in bed. She notes her pain control has improved over the past 24 hours. She is tolerating solid diet without exacerbating any abdominal pain or precipitating any nausea or vomiting. She is passing flatus since her surgery was not had a bowel movement. She has been ambulating since her surgery. She denies shortness of breath. She notes that she is voiding without difficulty. Physical Exam Gastrointestinal (Abdomen): Bowel sounds are present. Abdomen is nondistended. 4 laparoscopic incisions a re all clean, dry, and intact. Patient has appropriate tenderness near her surgical incisions. Results & Data Vital Signs (Past 12 Hours) Vital Signs Temp Pulse Resp BP Pulse Ox O2 Del Method 01/06/24 22:31 36.3 C L 64 16 118/75 96 Room Air 01/06/24 22:23 Room Air PG Care Time/CCT Total # of Minutes Spent Total Time Spent with Patient: Total time spent is greater than 50% in coordination of care (as documented) at patient's floor/unit and/or counseling patient: Coding Level of Care Code 80653 Post Operative Follow-Up Diagnoses Acute calculous cholecystitis K80.00
[2024-01-07 06:58] LABS: Basophils # (auto) 0.04 K/uL (0.00-0.20); Basophils % (auto) 0.2 %; Eosinophils # (auto) 2.55 K/uL (0.00-0.50); Eosinophils % (auto) 15.4 %; Hematocrit (blood only) 32.7 % (37.0-47.0); Hemoglobin 10.9 g/dl (12.0-16.0); Immature Granulocytes # (auto) 0.12 K/uL (0.01-0.20); Immature Granulocytes % (auto) 0.7 %; Lymphocytes # (auto) 4.71 K/uL (1.20-3.40); Lymphocytes % (auto) 28.5 %; Mean Corpuscular Hemoglobin 29.7 pg (25.0-34.0); Mean Corpuscular Hgb Conc 33.3 g/dL (32.0-36.0); Mean Corpuscular Volume 89.1 fL (80.0-100.0); Mean Platelet Volume 8.9 fL (9.4-12.4); Monocytes # (auto) 0.85 K/uL (0.11-0.59); Monocytes % (auto) 5.1 %; Neutrophils # (auto) 8.26 K/uL (1.40-6.50); Neutrophils % (auto) 50.1 %; Platelet Count 342 K/uL (130-400); RDW Coefficient of Variation 12.8 % (11.5-14.5); RDW Standard Deviation 41.7 fL (36.4-46.3); Red Blood Count 3.67 M/uL (4.20-5.40); White Blood Count 16.53 K/ul (4.8-10.8)
[2024-01-07 07:30] LABS: Albumin Globulin Ratio 1.3 (0.9-2); Albumin Level 3.4 gm/dl (3.4-5.0); BUN Creatinine Ratio 16.3 (10-20); Bilirubin,Total 0.3 mg/dl (0.2-1.0); Creatinine Clr Calc Pharmacy 203.8 ml/min; Est GFR (African American) 142.2 ml/min; Est GFR (Non-African American) 122.7 ml/min; Globulin 2.6 gm/dl (2.5-4.0); Magnesium 1.6 mg/dl (1.7-2.4); Potassium 3.7 mmol/L (3.5-5.1)
[2024-01-07] MEDS: LORATADINE 10 MG TAB PO SCH (08:05)
--- NOTE | 2024-01-07 14:49 | Discharge Summary ---
Discharge Summary Date of Service January 07, 2024 Notes For Next Care Provider Patient was discharged with white count stable at 16,000 and LFTs showing a bili of 1.6 but transaminases reducing. Patient exam is very stable he did have oral intake without symptoms. Patient was kept an additional day due to similar concerns but there have been no uptrending of her laboratories or change in her clinical examination Patient was discharged on Percocet for Pain control she was given Zofran for nausea and given additional 3 days worth of Augmentin given her persistent leukocytosis. Admission HPI Per Admitting Provider The patient is a 38-year-old female past medical history including dyslipidemia, hypothyroidism, hypertension, diabetes mellitus type 2 and morbid obesity with BMI 42. She presents to the emergency department with symptoms as noted above. CT scan of abdomen pelvis showed gallbladder wall thickening, with mild pericholecystic edema, with suggestion for ordered gallbladder ultrasound for confirmation. Gallbladder ultrasound revealed cholelithiasis with gallbladder wall thickening, but unsure of evidence of acute cholecystitis. LFTs are normal, and lipase is elevated 296. WBC is elevated 15.25 Principal Dx & Hospital Course #1 = Principal Diagnosis (1) Abnormal findings on diagnostic imaging of gallbladder: Cholelithiasis noted. HIDA scan negative for acute cholecystitis. I suspect she passed a gallstone causing her symptoms which have now resolved. Patient had laparoscopic cholecystectomy on 01/[address] Garner Additional lipase of 203 has resolved suggestive of gallstone which is passed (2) Dyslipidemia: By history. Stable. Remains on rosuvastatin (3) Hypothyroidism: Stable. Continue current medical management (4) Uncontrolled type 2 diabetes mellitus with hyperglycemia: ADA diet. Patient return outpatient diabetic management this includes glargine, metformin, and Mounjaro (5) Obesity, morbid: Significant weight loss recommended, this likely impacts her type 2 diabetes and dyslipidemia Discharge Exam Awake alert appropriate. Abdominal examination is with hypoactive bowel sounds soft nontender laparoscopic sites are clean dry and intact Updated Medication List Medication Instructions Recorded Confirmed Type blood sugar diagnostic (ReliOn 11/19/22 01/04/24 History Prime Test Strips) cholecalciferol (vitamin D3) 50 50 mcg PO DAILY 11/19/22 01/04/24 History mcg (2,000 unit) capsule pen needle, diabetic 32 gauge x #100 ea 12/16/22 01/04/24 Rx " (BD Ultra-Fine Chichi Pen Needle) omega-3 fatty acids 1,000 mg 2,000 mg PO BID 01/07/23 01/04/24 History capsule (Fish Oil Concentrate) levothyroxine 125 mcg tablet 125 mcg PO DAILY #90 tabs 02/08/23 01/04/24 Rx labetalol 100 mg tablet 100 mg PO DAILY #90 tabs 05/11/23 01/04/24 Rx niacin 1,000 mg tablet,extended 1,000 mg PO .qhs #90 tabs 05/31/23 01/04/24 Rx release 24 hr blood-glucose sensor (FreeStyle #2 ea 10/25/23 01/04/24 Rx Adwoa 3 Sensor device) insulin glargine 100 unit/mL (3 55 unit subcut QAM 11/17/23 01/04/24 History mL) subcutaneous pen (Lantus Solostar U-100 Insulin) rosuvastatin 20 mg tablet 20 mg PO DAILY #90 tabs 11/17/23 01/04/24 Rx tirzepatide 12.5 mg/0.5 mL 12.5 mg (0.5 mL) subcut Q7D #2 mL 11/17/23 01/04/24 Rx subcutaneous pen injector metformin 1,000 mg tablet 1,000 mg PO BID #60 tabs 12/22/23 01/04/24 Rx oxycodone-acetaminophen 5 mg-325 1 tab PO Q6H PRN pain #10 tabs 01/06/24 Rx mg tablet amoxicillin 875 mg-potassium 1 tab PO BID #6 tabs 01/07/24 Rx clavulanate 125 mg tablet ondansetron 4 mg disintegrating 4 mg PO BID PRN nausea and 01/07/24 Rx tablet vomiting 4 days #10 tabs Hospital Stay Data Consultations 01/04/24 22:12 ED Decision to Admit Stat 01/05/24 08:22 Consult General Surgery Routine Procedures Performed Operation Date: 01/05/24 10:10 Actual Procedures p Laparoscopic Cholecystectomy, Cholangiogram(Not Applicable) - Ruddy Garner MD Diagnostic Imagining Performed 01/04/24 16:10 CT Abd and Pelvis [CT abd pelvis IV con only] Stat 01/04/24 17:25 US gallbladder Stat 01/05/24 [place] cholangiogram OR Routine Pending Results Patient Have Any Pending Studies at Discharge: Yes (gallbladder pathology, will be reviewed at postop visit) Discharge Instructions Given to Patient (Per Discharging Provider) please have blood work checked on Tuesday01/09/24 Total Time Total Time Spent Total Time Spent (In Minutes): It required greater than 30 minutes to prepare this patient for discharge. Coding Level of Care Code 12918 INP/OBS DISCH >30 MIN Diagnoses Abnormal findings on diagnostic imaging of gallbladder R93.2 Dyslipidemia E78.5 Acquired hypothyroidism E03.9 Hypothyroidism type: acquired Uncontrolled type 2 diabetes mellitus with hyperglycemia E11.65 Obesity, morbid E66.01
--- NOTE | 2024-01-10 09:58 | Coding Query ---
CODING QUERY To promote full compliance with coding requirements relating to patient care, provider participation is requested in all cases of tube lancer uncertainty. Please assist us with the question(s) below: Coding Question(s): Possible Pancreatitis is documented in the record and there is documentation , as on the 01/05 Progress Note of, "(2) Pancreatitis: Plan: No overt pancreatitis. Lipase now down to 203. Will follow". It is not clear if there was still Possible Pancreatitis being followed or if it was ruled-out. Please specify below, in your clinical opinion: ( ) Possible Pancreatitis ( x ) Pancreatitis Ruled-Out Physician's Response(s): Thank you Darlene Nagel Principal Diagnosis: "that condition established after study, to be chiefly responsible for occasioning the admission of the patient to the hospital for care." Co-Existing Principal Diagnosis: "when two or more diagnoses equally meet the criteria for principal diagnosis as determined by the circumstances of admission, diagnostic work up, and/or therapy provided, and the Alphabetic Index, Tabular List, or another coding guideline does not provide sequencing direction, any one of the diagnoses may be sequenced first." "When the physician has documented what appears to be a current diagnosis in the body of the record, but has not included the diagnosis in the final diagnostic statement, the physician should be asked whether the diagnosis should be added." (Source Coding [facility] 2 QTR90. p3-4) KIMBERLY
== END 2024-01-07 13:35 | disposition home or self-care (01) | DRG 418 ==
LOC: ED 14:09 → 3W 21:57 → SUATTDRO 21:57 → 3W 22:54